=== PATIENT | male | born 1960 | race Caucasian/White ===

== ENCOUNTER 2019-12-27 09:34 | Inpatient (IN) | payer SELFPAY ==
[2019-12-27] MEDS ORDERED: HYDRALAZINE HCL 20 MG/ML VIAL ONE (10:03)
--- NOTE | 2019-12-27 10:16 | RAD REPORT ---
EXAM DESCRIPTION: RAD - Chest Single View - 12/27/2019 10:09 am CLINICAL HISTORY: DYSPNEA Chest pain. COMPARISON: No comparisons FINDINGS: Portable technique limits examination quality. The lungs are grossly clear. The heart is normal in size. No displaced fractures. IMPRESSION: No acute intrathoracic process suspected.
[2019-12-27 10:19] LABS: Absolute Lymphocytes (CBC) 1.4 K/uL (0.7-4.9); Basophils % 0.4 % (0-1.3); Hematocrit 39.8 % (39.6-49.0); Lymphocytes % 35.9 % (15.3-44.8); MPV 7.5 fL (7.6-11.3); RBC Red Blood Cell Count 4.26 M/uL (4.33-5.43)
[2019-12-27 10:25] LABS: Protime INR 1.13
[2019-12-27 10:46] LABS: Albumin 3.4 g/dL (3.4-5.0); Bilirubin Direct 0.1 mg/dL (0-0.2); Bilirubin Total 0.6 mg/dL (0.2-1.0); Magnesium 2.2 mg/dL (1.8-2.4); Potassium 4.5 mmol/L (3.5-5.1); Protein, Total 7.8 g/dL (6.4-8.2)
[2019-12-27] MEDS ORDERED: NA CHLORIDE 0.9% 1,000 ML ONE (11:13)
--- OUTSIDE RECORDS SUMMARY | 2019-12-27 11:13 | XMS REPORT | Summary of Care ---
:1960 Author Organization [facility] Address [address] [place] [id number] Care Team Providers Name Role Phone Svetlana Ariza Primary Care Provider Reason for Referral (Routine) Status Reason Specialty Diagnoses / Referred By Referred To Procedures Contact Contact New Request Vascular Surgery Diagnoses Peripheral vascular disease, unspecified Shea, Procedures DUPLEX SCAN GRAFT LOWER EXTREMITY-UNILATERAL BY VASCULAR LAB THALIA Gonzales [address] [place] [address] (Routine) Status Reason Specialty Diagnoses / Referred By Referred To Procedures Contact Contact New Request Vascular Surgery Diagnoses Peripheral vascular disease, unspecified Shea, Procedures OTIS MULTI LEVEL BY VASCULAR LAB THALIA Gonzales [address] [place] [address] Reason for Visit Reason Comments Follow-up Encounter Details Date Type Department Care Team Description 10/01/2019 Office Visit [facility] Vascular Glenn Shea PA [address] [place] [address] Critical ischemia of lower extremity (Pr imary Dx); Surgery- [facility], Vascular Surg Peripheral vascular disease, unspecified ; [facility] Essential hypertension; [address] Critical low er limb ischemia; [address] Infection of left foot; [place], [place] Pain and swell ing of left lower leg [id number] Allergies No Known Allergiesdocumented as of this encounter (statuses as of 10/01/2019) Medications Medication Sig Dispensed Refills Start Date End Date Status hydroCHLOROthiazide 25 mg Take 1 tablet 30 tablet 2 08/25/2019 Active tabletIndications: by mouth Peripheral arterial every disease morning. aspirin 81 mg chewable Take 1 tablet 30 tablet 2 08/25/2019 Active tabletIndications: by mouth Peripheral arterial daily. disease HYDROcodone-acetaminophen Take 1 tablet 28 tablet 0 08/25/2019 Active (NORCO) 10-325 mg by mouth tabletIndications: every 6 (six) Peripheral vascular hours as disease, unspecified needed for Pain (scale 7-10). simvastatin 20 mg Take 1 tablet 30 tablet 2 08/25/2019 Active tabletIndications: by mouth at Peripheral arterial bedtime. disease traMADol 50 mg Take 1 tablet 20 tablet 0 08/29/2019 Active tabletIndications: by mouth Peripheral vascular every 8 disease, unspecified (eight) hours as needed for Pain (scale 4-6) or Pain (scale 7-10). doxycycline hyclate 100 mg Take 1 tablet 28 tablet 0 0 10/01/2019 Active tabletIndications: by mouth 2 Critical ischemia of lower (two) times extremity daily for 14 days. GABAPENTIN, BULK, MISC 0 Active FUROSEMIDE, BULK, MISC 0 Active furosemide 20 mg Take 1 tablet 7 tablet 0 10/01/2019 10/08/19 20 Active tabletIndications: Pain by mouth and swelling of left lower daily for 7 leg days. documented as of this encounter (statuses as of 10/01/2019) Active Problems Problem Noted Date Infection of left foot 09/07/2019 Critical lower limb ischemia 08/23/2019 Peripheral vascular disease, unspecified 07/31/2019 Overview: Added automatically from request for tono juarez [id number] documented as of this encounter (statuses as of 10/01/2019) Immunizations Name Administration Dates Next Due Pneumococcal Polysaccharide, PPSV23 (PNEUMOVAX) 09/12/2019 documented as of this encounter Social History Tobacco Use Types Packs/Day Years Used Date Current Every Day Smoker Smokeless Tobacco: Never Used Comments: 1 ppd Sex Assigned at Date Recorded Not on file Job Start Date Occupation Industry Not on file Not on file Not on file Travel History Travel Start Travel End No recent travel history available. documented as of this encounter Last Filed Vital Signs Vital Sign Reading Time Taken Comments Blood Pressure 139/73 10/01/2019 9:33 AM CDT Pulse 65 10/01/2019 9:33 AM CDT Temperature 36.5 C (97.7 F) 10/01/2019 9:33 AM CDT Respiratory Rate 22 10/01/2019 9:33 AM CDT Oxygen Saturation - - Inhaled Oxygen Concentration - - Weight 63.5 kg (140 lb) 10/01/2019 9:33 AM CDT Height 177.8 cm (5' 10") 10/01/2019 9:33 AM CDT Body Mass Index 20.09 10/01/2019 9:33 AM CDT documented in this encounter Progress Notes Glenn Shea PA - 10/01/2019 9:30 AM CDT VASCULAR SURGERY CLINIC NOTE Date of Service: 10/01/2019 CC: s/p left common femoral endarterectomy 08/23/19 with distal atherosclerotic disease. OTIS's were poor during that Hospitalization and he has collateral follow to the his left foot. The left foot has dependent Rubor and cyanosis of the left great toe and 2 nd toe. His left plantar heel eschar has been without erythema or drainage. HISTORY OF PRESENT ILLNESS: Zachery Nath is a 59 year old male with PMH/PSH as described below. The patient presents to clinic today for evaluation of his left heel ulcer and left ischemic foot. He finished his Doxycycline and he denies fever or chills. He has redness of the left foot and purple toes and he denies rest pain. He has pain with weight bearing on the left heel or pressure from the mattress when he sleeps. He has been compliant with his medications and he is out of his Furosemide. There is no drainage or redness of the left heel area. The eschar of the plantar heel is 3.0 cm x 4.5 cm x o.0 cm depth. He applies Mupirocin to the eschar. He has his own Pain Management Physician who prescribes him his Pain Meds. PAST MEDICAL HISTORY: Past Medical History: Diagnosis Date HTN (hypertension) PVD (peripheral vascular disease) Smoker PAST SURGICAL HISTORY: Past Surgical History: Procedure Laterality Date ANGIOGRAM VIA LOWER EXTREMITY ACCESS (SHX) Left 08/10/2019 Surgeon: Mckay Bonilla Jr., MD; [facility] AORTOGRAM Left 08/10/2019 Surgeon: Mckay Bonilla Jr., MD; Location: [facility] OR Location FEMORAL ENDARTERECTOMY Left 08/23/2019 Surgeon: Marine Gonzalez MD; Location: [facility] OR Location SOCIAL HISTORY: Social History Socioeconomic History Marital status: Single Spouse name: Not on file Number of children: Not on file Years of education: Not on file Highest education level: Not on file Occupational History Not on file Social Needs Financial resource strain: Not on file Food insecurity: Worry: Not on file Inability: Not on file Transportation needs: Medical: Not on file Non-medical: Not on file Tobacco Use Smoking status: Current Every Day Smoker Smokeless tobacco: Never Used Tobacco comment: 1 ppd Substance and Sexual Activity Alcohol use: Not on file Drug use: Not on file Sexual activity: Not on file Lifestyle Physical activity: Days per week: Not on file Minutes per session: Not on file Stress: Not on file Relationships Social connections: Talks on phone: Not on file Gets together: Not on file Attends taoism service: Not on file Active member of club or organization: Not on file Attends meetings of clubs or organizations: Not on file Relationship status: Not on file Intimate partner violence: Fear of current or ex partner: Not on file Emotionally abused: Not on file Physically abused: Not on file Forced sexual activity: Not on file Other Topics Concern Not on file Social History Narrative Not on file FAMILY HISTORY: No family history on file. CURRENT MEDICATIONS: Current Outpatient Medications on File Prior to Visit Medication Sig Dispense Refill GABAPENTIN, BULK, MISC hydroCHLOROthiazide 25 mg tablet Take 1 tablet by mouth every morning. 30 tablet 2 simvastatin 20 mg tablet Take 1 tablet by mouth at bedtime. 30 tablet 2 FUROSEMIDE, BULK, MISC doxycycline hyclate 100 mg tablet Take 1 tablet by mouth 2 (two) times daily for 14 days. 28 tablet 0 traMADol 50 mg tablet Take 1 tablet by mouth every 8 (eight) hours as needed for Pain (scale 4-6) or Pain (scale 7-10). 20 tablet 0 aspirin 81 mg chewable tablet Take 1 tablet by mouth daily. 30 tablet 2 HYDROcodone-acetaminophen (NORCO) 10-325 mg tablet Take 1 tablet by mouth every 6 (six) hours asneeded for Pain (scale 7-10). 28 tablet 0 No current facility-administered medications on file prior to visit. ALLERGIES: No Known Allergies REVIEW OF SYSTEMS: Constitutional: no fevers/chills Cardiovascular: no chest pain Respiratory: no shortness of breath Gastrointestinal: no abdominal pain, nausea, vomiting, diarrhea Musculoskeletal: pain with any pressure of the left heel. Integumentary: no rashes, lesions, itching Neurological: no stroke/TIA symptoms PHYSICAL EXAM: BP 139/73 | Pulse 65 | Temp 36.5 C (97.7 F) (Oral) | Resp 22 | Ht 5' 10" (1.778 m) | Wt 140lb (63.5 kg) | BMI 20.09 kg/m Constitutional: awake, alert, no acute distress Respiratory: No use of accessory musculature Cardio: RRR Abdomen: soft, non-distended Extremities: left heel eschar 4.5 cm x 3.0 cm x 0.0 cm Edematous, hyperemic Left lower extremity Eschar firm and dry no matt-eschar cellulitis Skin: warm and dry Neurologic: no localizing symptoms Psych:oriented to place and time, demonstrated good judgement and reasoning during the examination. Pulses: Radial: right: 1+ and left: 1+ Dorsalis pedis: right: 0 and left: 0 Posterior tibial: right: 0 and left: 0 Left AT and DP proximal with monophasic signal. No signal of the left PT ar Peroneal Arteries. 09/08/19: Vascular Labs: Procedure/Quality Single-level arterial Doppler waveforms, multi-level segmental pressures, PVR's and TBI's with PPG waveforms of the bilateral lower extremities were obtained. Arterial Doppler waveforms in the bilateral lower extremities demonstrate triphasic Doppler waveforms on the right and monophasic Doppler waveforms on the left. The resting ankle-brachial indices fall into the NORMAL perfusion range on the right and the SEVERE arterial occlusive range on the left. The toe-brachial index is normal on the right and not obtainable on the left. The left thigh pressure could not be obtained due to patient movement. Notified Dr. Shukla of results @ 1300. Right Brachial = 166 mmHg. Thigh = 172 mmHg. Calf = 191 mmHg. LEAD MASSAGE THERAPIST = 181 mmHg. DPA = 154 mmHg. Digit = 119 mmHg. OTIS = 1.08. TBI = 0.71. Rt PVR Thigh PVR = Mild. Calf PVR = Mild. Ankle flow PVR = Moderate. RT PPG Digit 1 flow is present. Left Brachial = 168 mmHg. Calf = 69 mmHg. LEAD MASSAGE THERAPIST = 46 mmHg. DPA = 62 mmHg. Digit = 0 mmHg. OTIS = 0.37. LT PVR Thigh PVR = Mild. Calf PVR = Moderate. Ankle flow PVR = Severe. LT PPG Digit 1 flow is absent. Interpretation Summary The resting ankle-brachial indices fall into the NORMAL perfusion range on the right and the SEVERE arterial occlusive range on the left Reading Physician: Derek Naik MD, [place], RPVI 09/09/2019 03:14 PM Electronically Signed Assessment/Plan: Zachery Nath is a 59 year old male with 1. Critical ischemia of lower extremity He is s/p left common femoral endarterectomy Left lower extremity angiogram was reviewed and he run off single vessel RUBÉN. 2. Peripheral vascular disease, unspecified - OTIS MULTI LEVEL BY VASCULAR LAB; in 2 weeks October 15, 2019 - DUPLEX SCAN GRAFT LOWER EXTREMITY-UNILATERAL BY VASCULAR LAB; repeat in 2 weeks 15 October 2019 3. Essential hypertension 4. Critical lower limb ischemia Gabapentin ASA 81 mg po daily Simvastatin 20 mg po daily Refrain from tobacco. HCTZ as directed. 5. Previously Infected left foot heel Topical Mupirocin daily Lasix 20 mg po daily x 7 days for his edema [facility] if he has drainage fever or chills Follow up in 2 weeks to evaluation s/p Vascular Lab studies. The patient was educated on present condition and advised to contact us with questions/concerns. Patient states they understand and are in agreement with the treatment plan at this time. Patient was examined and discussed with THALIA Thomas 10/01/2019 10:21 AM documented in this encounter Plan of Treatment Date Type Specialty Care Team Description 10/15/2019 Appointment Vascular Sonography Jules Bonilla Jr., MD [address] [facility] [id number] [place] [address] [phone] 1, [facility] Vas Rm 10/15/2019 Office Visit Vascular Surgery Faculty, Vascular Surg 10/15/2019 Appointment Vascular Sonography Jules Bonilla Jr., MD [address] [facility] [id number] [place] [address] [phone] 1, [facility] Vas Rm Health Maintenance Due Date Last Done Comments HEPATITIS C (HCV) SCREEN 1960 DTaP,Tdap,and Td Vaccines (1 - Tdap) 02/27/1972 COLONOSCOPY 2011 Zoster Recombinant Vaccine (SHINGRIX) (1 of 2) 2011 LUNG CANCER SCREEN: Recommended for age 55-80 with 30 02/27/2016 + pack year history INFLUENZA VACCINE (#1) 2019 PNEUMOCOCCAL 0-64 YEARS COMBINED SERIES Completed 09/12/19 20 documented as of this encounter Implants Implanted Type Area Human Resources Benefits Manager Device Shelf Model / Identifier Expiration Date Ser ial / Lot Angio-Seal Evolution Vascular Closure Device [employer] #[id number] - Sna Right: Terumo 02/01/2020 [id number] / Implanted: Qty: 1 on 08/10/2019 by Mckay Bonilla Jr., MD at [facility] / [id number] documented as of this encounter Results Not on filedocumented in this encounter Visit Diagnoses Diagnosis Critical ischemia of lower extremity - P rimary Peripheral vascular disease, unspecified Essential hypertension Unspecified essential hypertension Critical lower limb ischemia Unspecified circulatory system disorder Infection of left foot Unspecified local infection of skin and subcutaneous tissue Pain and swelling of left lower leg documented in this encounter Insurance Payer Benefit Plan Subscriber ID Effective Dates Phone Address Type / Group INDIGENT CARE ICF [id number] 2019- [facility] [address] [place] [address] documented as of this encounter
--- OUTSIDE RECORDS SUMMARY | 2019-12-27 11:14 | XMS REPORT | Summary of Care ---
:1960 Author Organization [facility] Address [address] [place] [address] Care Team Providers Name Role Phone Svetlana Ariza Primary Care Provider Reason for Visit Reason Comments Follow-up wound of left foot Encounter Details Date Type Department Care Team Description 10/15/2019 Office Visit [facility] Vascular Paolo Bonilla Jr., MD [address] [facility] [id number] [place] [address] Critical ischemia of lower extremity (Pr imary Dx); Surgery- [place] Faculty, Vascular Surg Peripheral vascular disease, unspecified ; [facility] Clinics Continuous tobacco abuse; [address]fection of [address] [place] [address] Allergies No Known Allergiesdocumented as of this encounter (statuses as of 10/15/2019) Medications Medication Sig Dispensed Refills Start Date End Date Status hydroCHLOROthiazide 25 mg Take 1 tablet 30 tablet 2 08/25/2019 Active tabletIndications: by mouth Peripheral arterial disease every morning. aspirin 81 mg chewable Take 1 tablet 30 tablet 2 08/25/2019 Active tabletIndications: by mouth Peripheral arterial disease daily. HYDROcodone-acetaminophen Take 1 tablet 28 tablet 0 08/25/2019 Active (NORCO) 10-325 mg by mouth tabletIndications: every 6 (six) Peripheral vascular hours as disease, unspecified needed for Pain (scale 7-10). simvastatin 20 mg Take 1 tablet 30 tablet 2 08/25/2019 Active tabletIndications: by mouth at Peripheral arterial disease bedtime. traMADol 50 mg Take 1 tablet 20 tablet 0 08/29/2019 Active tabletIndications: by mouth Peripheral vascular every 8 disease, unspecified (eight) hours as needed for Pain (scale 4-6) or Pain (scale 7-10). GABAPENTIN, BULK, MISC 0 Active FUROSEMIDE, BULK, MISC 0 Active documented as of this encounter (statuses as of 10/15/2019) Active Problems Problem Noted Date Infection of left foot 09/07/2019 Critical lower limb ischemia 08/23/2019 Peripheral vascular disease, unspecified 07/31/2019 Overview: Added automatically from request for tono juarez [id number] documented as of this encounter (statuses as of 10/15/2019) Immunizations Name Administration Dates Next Due Pneumococcal Polysaccharide, PPSV23 (PNEUMOVAX) 09/12/2019 documented as of this encounter Social History Tobacco Use Types Packs/Day Years Used Date Current Every Day Smoker Smokeless Tobacco: Never Used Tobacco Cessation: Ready to Quit: No; Co unseling Given: Yes Comments: 1 ppd Sex Assigned at Date Recorded Not on file Job Start Date Occupation Industry Not on file Not on file Not on file Travel History Travel Start Travel End No recent travel history available. documented as of this encounter Last Filed Vital Signs Vital Sign Reading Time Taken Comments Blood Pressure 126/76 10/15/2019 10:31 AM CDT Pulse 68 10/15/2019 10:31 AM CDT Temperature 36.4 C (97.5 F) 10/15/2019 10:31 AM CDT Respiratory Rate 16 10/15/2019 10:31 AM CDT Oxygen Saturation - - Inhaled Oxygen Concentration - - Weight 63.5 kg (140 lb) 10/15/2019 10:31 AM CDT Height 177.8 cm (5' 10") 10/15/2019 10:31 AM CDT Body Mass Index 20.09 10/15/2019 10:31 AM CDT documented in this encounter Progress Notes Glenn Shea PA - 10/15/2019 10:00 AM CDT VASCULAR SURGERY CLINIC NOTE Date of Service: 10/15/2019 CC: left heel ulcer that is slow to heel s/p left femoral endarterectomy 08/23/19. Left heel wound ispainful and both lower legs are edematous. HISTORY OF PRESENT ILLNESS: Zachery Nath is a 59 year old male with PMH/PSH as described below. The patient presents to clinic today for evaluation of the left heel ulcer now eschar. Patient has escharof the left plantar heel which measures 4.5 cm x 3.0 cm x o.o cm depth. He has bilateral lower extremity below the knee edema of the lower leg ankels and feet. He is non weight bearing LLE on crutches.He is on HCTZ and he is followed by Pain Management. He cannot sleep because of his pain. PAST MEDICAL HISTORY: Past Medical History: Diagnosis Date HTN (hypertension) PVD (peripheral vascular disease) Smoker PAST SURGICAL HISTORY: Past Surgical History: Procedure Laterality Date ANGIOGRAM VIA LOWER EXTREMITY ACCESS (SHX) Left 08/10/2019 Surgeon: Mckay Bonilla Jr., MD; Location: [facility] AORTOGRAM Left 08/10/2019 Surgeon: Mckay Bonilla Jr., MD; Location: [facility] FEMORAL ENDARTERECTOMY Left 08/23/2019 Surgeon: Marine Gonzalez MD; Location: [facility] SOCIAL HISTORY: Social History Socioeconomic [...] file Gets together: Not on file Attends confucianist service: Not on file Active member of [...] Prior to Visit Medication Sig Dispense Refill FUROSEMIDE, BULK, MISC GABAPENTIN, BULK, MISC traMADol 50 mg tablet Take 1 tablet by mouth every 8 (eight) hours as needed for Pain (scale 4-6) or Pain (scale 7-10). 20 tablet 0 aspirin 81 mg chewable tablet Take 1 tablet by mouth daily. 30 tablet 2 hydroCHLOROthiazide 25 mg tablet Take 1 tablet by mouth every morning. 30 tablet 2 HYDROcodone-acetaminophen (NORCO) 10-325 mg tablet Take 1 tablet by mouth every 6 (six) hours asneeded for Pain (scale 7-10). 28 tablet 0 simvastatin 20 mg tablet Take 1 tablet by mouth at bedtime. 30 tablet 2 No current facility-administered medications on file prior to visit. ALLERGIES: No Known Allergies REVIEW OF SYSTEMS: Constitutional: no fevers/chills Cardiovascular: no chest pain Respiratory: no shortness of breath Gastrointestinal: no abdominal pain, nausea, vomiting, diarrhea Musculoskeletal: swelling of the bilateral feet. Integumentary: no rashes, lesions, itching Neurological: no stroke/TIA symptoms PHYSICAL EXAM: BP 126/76 (BP Location: Left arm, Patient Position: Sitting, BP CUFF SIZE: Adult Large) | Pulse 68| Temp 36.4 C (97.5 F) (Oral) | Resp 16 | Ht 5' 10" (1.778 m) | Wt 140 lb (63.5 kg) | BMI 20.09 kg/m Constitutional: awake, alert, no acute distress Respiratory: No use of accessory musculature Cardio: RRR Abdomen: soft, non-distended Extremities: left heel eschar is the same with area of scaly skin at the periphery. He has edema of both lower extremities eschar is 4.5 cm x 3.0 cm x 0.0 cm depth. Skin: warm and dry Neurologic: no localizing symptoms Psych:oriented to place and time, demonstrated good judgement and reasoning during the examination. Pulses: Radial: right: 1+ and left: 1+ Dorsalis pedis: right: 0 and left: 0 Posterior tibial: right: 0 and left: 0 Left foot with monophasic signals left peroneal and PT Artery. Stronger monophasic signal of the left DP Artery. Vascular Labs: 10/15/19: Measurements and Calculations Right No Laterality Left Unit Ext Iliac A PSV 73.7 cm/sec CLIN TECH PSV 50.6 cm/sec Prox PFA PSV -54.0 cm/sec Prox RUBÉN PSV 48.3 cm/sec Mid RUBÉN PSV -11.1 cm/sec Dist RUBÉN PSV 13.2 cm/sec Prox DAIRY FARM OPERATOR PSV 22.4 cm/sec Mid DAIRY FARM OPERATOR PSV 25.2 cm/sec Dist DAIRY FARM OPERATOR PSV 6.8 cm/sec Prox Wesely A PSV -30.1 cm/sec Mid Wesley A PSV 10.6 cm/sec Ponce Pedis PSV -12.1 cm/sec Procedure Arterial duplex of the LEFT lower extremity was performed. Lt Lower extremity Measurements and Calculations Right No Laterality Left Unit Ext Iliac A PSV 73.7 cm/sec CLIN TECH PSV 50.6 cm/sec Prox PFA PSV -54.0 cm/sec Prox RUBÉN PSV 48.3 cm/sec Mid RUBÉN PSV -11.1 cm/sec Dist RUBÉN PSV 13.2 cm/sec Prox DAIRY FARM OPERATOR PSV 22.4 cm/sec Mid DAIRY FARM OPERATOR PSV 25.2 cm/sec Dist DAIRY FARM OPERATOR PSV 6.8 cm/sec Prox Wesley A PSV -30.1 cm/sec Mid Wesley A PSV 10.6 cm/sec Ponce Pedis PSV -12.1 cm/sec Procedure Arterial duplex of the LEFT lower extremity was performed. Lt Lower extremity The distal external iliac, common femoral and profunda arteries were patent with no evidence of hemodynamically significant velocities seen. There were no obtainable values in the superficial femoral and popliteal arteries suggestive of occlusion. The distal posterior tibial, peroneal, anterior tibial and dorsalis pedis arteries were patent and demonstrated decreased velocities. Assessment/Plan: Zachery Nath is a 59 year old male with 1. Critical ischemia of lower extremity The distal external iliac, common femoral and profunda arteries were patent with no evidence of hemodynamically significant velocities seen. There were no obtainable values in the superficial femoral and popliteal arteries suggestive of occlusion. The distal posterior tibial, peroneal, anterior tibial and dorsalis pedis arteries were patent and demonstrated decreased velocities. 2. Peripheral vascular disease, unspecified Simvastatin 20 mg po daily HCTZ 25 mg po daily ASA 81 mg po daily 3. Continuous tobacco abuse. 4. Infection of left foot Patient with an eschar now. Follow up 11/05/2019 for re-evaluation Patient with a left SFA to popliteal artery occlusion. The patient was educated on present condition and advised to contact us with questions/concerns. Patient states they understand and are in agreement with the treatment plan at this time. Patient will be discussed with THALIA Thomas 10/15/2019 12:06 PM Farideh Bautista RN - 10/15/2019 10:00 AM Beth Nath is a 59 year old male comes to clinic with assistive device; wheelchair for follow up left foot. Pt comes accompanied by son . Pt in NAD w/ pain reported 04/12. Pt preferred language is Salvadorean. Pt. denies fall in last 12 months. Allergies and medications reviewed and updated. documented in this encounter Plan of Treatment Date Type Specialty Care Team Description 11/05/2019 Office Visit Vascular Surgery Faculty, Vascular Surg Health Maintenance Due Date Last Done Comments [...] of this encounter Implants Implanted Type Area Blow Machine Tender Starch Spraying Device Shelf Model / Identifier Expiration Date Ser ial / Lot Angio-Seal Evolution Vascular Closure Device [employer] #[id number] - Sna Right: Terumo 02/01/2020 [id number] / Implanted: Qty: 1 on 08/10/2019 by Mckay Bonilla Jr., MD at [facility] / [id number] documented as of this encounter Results Not on filedocumented in this encounter Visit Diagnoses Diagnosis Critical ischemia of lower extremity - P rimary Peripheral vascular disease, unspecified Continuous tobacco abuse Infection of left foot Unspecified local infection of skin and subcutaneous tissue documented in this encounter Insurance Payer Benefit Plan Subscriber ID Effective Dates Phone Address Type / Group INDIGENT CARE [facility] [id number] 2019- [facility] [address] [place] [address] documented as of this encounter
--- OUTSIDE RECORDS SUMMARY | 2019-12-27 11:14 | XMS REPORT | Summary of Care ---
:1960 Author Organization [facility] Address [address] [place] [address] Care Team Providers Name Role Phone Svetlana Ariza Primary Care Provider Reason for Referral (Routine) Status Reason Specialty Diagnoses / Referred By Referred To Procedures Contact Contact New Request Vascular Surgery Diagnoses Peripheral vascular disease, unspecified Shea, Procedures DUPLEX SCAN GRAFT LOWER EXTREMITY-UNILATERAL BY VASCULAR LAB THALIA Gonzales [address] [place] [address] (Routine) Status Reason Specialty Diagnoses / Referred By Referred To Procedures Contact Contact New Request Vascular Surgery Diagnoses Peripheral vascular disease, unspecified Shea, Procedures OTIS MULTI LEVEL BY VASCULAR LAB THALIA Gonzales [address] [place] [address] Reason for Visit Reason Comments Follow-up Encounter Details Date Type Department Care Team Description 10/01/[address] [facility] Vascular Glenn Shea PA [address] [place] [address] Critical ischemia of lower extremity (Pr imary Dx); Surgery- [place] Faculty, Vascular Surg Peripheral vascular disease, unspecified ; [facility] Clinics Essential hypertension; [address] Critical low er limb ischemia; Drive, [address] Floor Infection of left foot; [place], [place] Pain and swell ing of left lower leg [address] Allergies No Known Allergiesdocumented as of this encounter (statuses as of 10/03/2019) Medications Medication Sig Dispensed Refills Start Date End Date Status hydroCHLOROthiazide 25 mg Take 1 30 tablet 2 08/25/2019 Active tabletIndications: tablet by Peripheral arterial mouth every disease morning. aspirin 81 mg chewable Take 1 30 tablet 2 08/25/2019 Active tabletIndications: tablet by Peripheral arterial mouth daily. disease HYDROcodone-acetaminophen Take 1 28 tablet 0 08/25/2019 Active (NORCO) 10-325 mg tablet by tabletIndications: mouth every Peripheral vascular 6 (six) disease, unspecified hours as needed for Pain (scale 7-10). simvastatin 20 mg Take 1 30 tablet 2 08/25/2019 A ctive tabletIndications: tablet by Peripheral arterial mouth at disease bedtime. traMADol 50 mg Take 1 20 tablet 0 08/29/2019 Acti ve tabletIndications: tablet by Peripheral vascular mouth every disease, unspecified 8 (eight) hours as needed for Pain (scale 4-6) or Pain (scale 7-10). GABAPENTIN, BULK, MISC 0 Active FUROSEMIDE, BULK, MISC 0 Active furosemide 20 mg Take 1 7 tablet 0 10/01/2019 10/08/2019 A ctive tabletIndications: Pain tablet by and swelling of left lower mouth daily leg for 7 days. doxycycline hyclate 100 mg Take 1 28 tablet 0 09/17/2019 tabletIndications: tablet by Critical ischemia of lower mouth 2 extremity (two) times daily for 14 days. documented as of this encounter (statuses as of 10/03/2019) Active Problems Problem Noted Date Infection of left foot 09/07/2019 Critical lower limb ischemia 08/23/2019 Peripheral vascular disease, unspecified 07/31/2019 Overview: Added automatically from request for tono ann [id number] documented as of this encounter (statuses as of 10/03/2019) Immunizations Name Administration Dates Next Due Pneumococcal [...] file Gets together: Not on file Attends mandaen service: Not on file Active member of [...] = 172 mmHg. Calf = 191 mmHg. FURNACE TAPPER = 181 mmHg. DPA = 154 mmHg. Digit = 119 mmHg. OTIS = 1.08. TBI = 0.71. Rt PVR Thigh PVR = Mild. Calf PVR = Mild. Ankle flow PVR = Moderate. RT PPG Digit 1 flow is present. Left Brachial = 168 mmHg. Calf = 69 mmHg. FURNACE TAPPER = 46 mmHg. DPA = 62 mmHg. [...] MI, RPVI 09/09/2019 03:14 PM Electronically Signed Vein Mapping: Procedure Vein mapping of the bialteral lower extremities was performed. The great saphenous vein was patent bilaterally. RT Superficial GSV at the proximal thigh measures 0.35 cm. GSV at the mid thigh measures 0.15 cm. GSV at the distal thigh measures 0.15 cm. GSV at the proximal calf measures 0.24 cm. GSV at the mid calf measures 0.16 cm. GSV at the distal calf measures 0.20 cm. LT Superficial GSV at the proximal thigh measures 0.27 cm. GSV at the mid thigh measures 0.23 cm. GSV at the distal thigh measures 0.28 cm. GSV at the proximal calf measures 0.24 cm. GSV at the mid calf measures 0.33 cm. GSV at the distal calf measures 0.18 cm. Interpretation Summary Patent great saphenous veins bilaterally. VEINS are small. Assessment/Plan: Zachery Nath is a 59 year [...] 7 days for his edema Return to [facility] if he has drainage fever or chills Follow up in 2 weeks to evaluation s/p Vascular Lab studies. Patient may be a candidate for a femoral to distal left lower extremity bypass graft using greater saphenous vein if possible. PTFE would not last for any length of time. The patient was educated on present condition and advised to contact us with questions/concerns. Patient states they understand and are in agreement with the treatment plan at this time. Patient was examined and discussed with THALIA Thomas 10/01/2019 10:21 AM documented in this encounter Plan of Treatment Date Type Specialty Care Team Description 10/15/2019 Appointment Vascular Sonography Jules Bonilla Jr., MD [address] [facility] [id number] [place] [id number] 1, [facility] 10/15/2019 Office Visit Vascular Surgery Faculty, Vascular Surg 10/15/2019 Appointment Vascular Sonography Jules Bonilla Jr., MD [address] [facility] [id number] [place] [address] [phone] 1, [facility] Health Maintenance Due Date Last Done Comments [...] of this encounter Implants Implanted Type Area Track Patrol Device Shelf Model / Identifier Expiration Date Ser ial / Lot Angio-Seal Evolution Vascular Closure Device [employer] #[id number] - Sna Right: Terumo 02/01/2020 [id number] / Implanted: Qty: 1 on 08/10/2019 by Mckay Bonilla Jr., MD at [facility] / [id number] documented as of this encounter Results Not [...] in this encounter Insurance Payer Benefit Plan / Subscriber ID Effective Dates Phone Addre ss Type Group P[facility]LO [facility] [id number] 2019- [address] [facility] [address] [place] [address] documented as of this encounter
--- OUTSIDE RECORDS SUMMARY | 2019-12-27 11:14 | XMS REPORT | Summary of Care ---
:1960 Author Organization [facility] Address [address] [place] [address] Care Team Providers Name Role Phone Svetlana Ariza Primary Care Provider Reason for Visit Reason Comments Follow-up wound of left foot Encounter Details Date Type Department Care Team Description 10/15/2019 Office Visit [facility] Vascular Paolo Bonilla Jr., MD [address] [facility] [id number] [place] [address] Critical ischemia of lower extremity (Pr imary Dx); Surgery- [place] Faculty, Vascular Surg Peripheral vascular disease, unspecified ; [facility] Clinics Continuous tobacco abuse; [address]fection of left foot [address] [place] [address] Allergies No Known Allergiesdocumented as [...] Added automatically from request for tono juarez [id number] documented as of this encounter (statuses as [...] file Gets together: Not on file Attends jewish service: Not on file Active member of [...] Unit Ext Iliac A PSV 73.7 cm/sec DIETETIC INTERN PSV 50.6 cm/sec Prox PFA PSV -54.0 cm/sec Prox RUBÉN PSV 48.3 cm/sec Mid RUBÉN PSV -11.1 cm/sec Dist RUBÉN PSV 13.2 cm/sec Prox TRADITIONAL CHINESE HERBALIST PSV 22.4 cm/sec Mid TRADITIONAL CHINESE HERBALIST PSV 25.2 cm/sec Dist TRADITIONAL CHINESE HERBALIST PSV 6.8 cm/sec Prox Wesley A PSV -30.1 cm/sec Mid Wesley A PSV 10.6 cm/sec Ponce Pedis PSV -12.1 cm/sec Procedure Arterial duplex of the LEFT lower extremity was performed. Lt Lower extremity Measurements and Calculations Right No Laterality Left Unit Ext Iliac A PSV 73.7 cm/sec DIETETIC INTERN PSV 50.6 cm/sec Prox PFA PSV -54.0 cm/sec Prox RUBÉN PSV 48.3 cm/sec Mid RUBÉN PSV -11.1 cm/sec Dist RUBÉN PSV 13.2 cm/sec Prox TRADITIONAL CHINESE HERBALIST PSV 22.4 cm/sec Mid TRADITIONAL CHINESE HERBALIST PSV 25.2 cm/sec Dist TRADITIONAL CHINESE HERBALIST PSV 6.8 cm/sec Prox Wesley A PSV [...] pain reported 04/12. Pt preferred language is Ugandan. Pt. denies fall in last 12 months. [...] of this encounter Implants Implanted Type Area Agent Producer Device Shelf Model / Identifier Expiration Date Ser ial / Lot Angio-Seal Evolution Vascular Closure Device [employer] #[id number] - Sna Right: Terumo 02/01/2020 [id number] / Implanted: Qty: 1 on 08/10/2019 by Mckay Bonilla Jr., MD at [facility] / [id number] documented as of this encounter Results Not on filedocumented in this encounter Visit Diagnoses Diagnosis Critical ischemia of lower extremity - P rimary Peripheral vascular disease, unspecified Continuous tobacco abuse Infection of left foot Unspecified local infection of skin and subcutaneous tissue documented in this encounter Insurance Payer Benefit Plan Subscriber ID Effective Dates Phone Address Type / Group [facility] [id number] 2019- [facility] [address] [place] [address] documented as of this encounter
--- OUTSIDE RECORDS SUMMARY | 2019-12-27 11:14 | XMS REPORT | Summary of Care ---
:1960 Author Organization [facility] Address [address] [place] [address] Care Team Providers Name Role Phone Svetlana Ariza Primary Care Provider Reason for Referral (Routine) Status Reason Specialty Diagnoses / Referred By Referred To Procedures Contact Contact New Request Vascular Surgery Diagnoses Peripheral vascular disease, unspecified Shea, Procedures DUPLEX SCAN GRAFT LOWER EXTREMITY-UNILATERAL BY VASCULAR LAB THALIA Gonzales [address] [place] [address] (Routine) Status Reason Specialty Diagnoses / Referred By Referred To Procedures Contact Contact New Request Vascular Surgery Diagnoses Peripheral vascular disease, unspecified Shea, Procedures OTIS MULTI LEVEL BY VASCULAR LAB THALIA Gonzales [address] [place] [address] Reason for Visit Reason Comments Follow-up Encounter Details Date Type Department Care Team Description 10/01/2019 Office Visit [facility] Vascular Glenn Shea PA [address] [place] [address] Critical ischemia of lower extremity (Pr imary Dx); Surgery- [place] Faculty, Vascular Surg Peripheral vascular disease, unspecified ; [facility] Clinics Essential hypertension; [address] Critical low er limb ischemia; Drive, [address] Floor Infection of left foot; [place], [place] Pain and swell ing of left [...] Added automatically from request for tono juarez [id number] documented as of this encounter (statuses as [...] 08/10/2019 Surgeon: Mckay Bonilla Jr., MD; Location: [facility] OR Location FEMORAL ENDARTERECTOMY Left 08/23/2019 Surgeon: Marine Gonzalez MD; Location: [facility] OR Location SOCIAL HISTORY: Social History Socioeconomic [...] file Gets together: Not on file Attends lutheran service: Not on file Active member of [...] = 172 mmHg. Calf = 191 mmHg. OVERWEAVER = 181 mmHg. DPA = 154 mmHg. Digit = 119 mmHg. OTIS = 1.08. TBI = 0.71. Rt PVR Thigh PVR = Mild. Calf PVR = Mild. Ankle flow PVR = Moderate. RT PPG Digit 1 flow is present. Left Brachial = 168 mmHg. Calf = 69 mmHg. OVERWEAVER = 46 mmHg. DPA = 62 mmHg. [...] 7 days for his edema Return to [facility] if he has drainage fever or chills [...] Vascular Sonography Jules Bonilla Jr., MD 301 [facility] [id number] [place] [address] [phone] 1, [facility] Vas Rm 10/15/2019 Office Visit Vascular Surgery Faculty, Vascular Surg 10/15/2019 Appointment Vascular Sonography Jules Bonilla Jr., MD 301 [facility] [id number] [place] [address] [phone] 1, [facility] Vas Rm Health Maintenance Due Date Last [...] of this encounter Implants Implanted Type Area Intermediate Frame Tender Device Shelf Model / Identifier Expiration Date Ser ial / Lot Angio-Seal Evolution Vascular Closure Device [employer] #[id number] - Sna Right: Terumo 02/01/2020 [id number] / Implanted: Qty: 1 on 08/10/2019 by Mckay Bonilla Jr., MD at [facility] / [id number] documented as of this encounter Results Not [...] Address Type / Group INDIGENT CARE [facility] [id number] 2019- [facility] [address] [place] [address] documented as of this encounter
--- OUTSIDE RECORDS SUMMARY | 2019-12-27 11:15 | XMS REPORT | Summary of Care ---
:1960 Author Organization [facility] Address [address] [place] [address] Care Team Providers Name Role Phone Svetlana Ariza Primary Care Provider Reason for Visit Reason Comments Follow-up PVD Encounter Details Date Type Department Care Team Description 11/05/2019 Office Visit [facility] V[facility] Eligio Kelsey MD [address] [place] [address] Critical ischemia of lower extremity (Pr imary Dx); Surgery- [place] [facility], Vascular Surg Peripheral vascular disease, unspecified ; [facility] Continuous tobacco abuse; [address] pertension; [address], [address] Heel ulcer, left, [place] [address] Allergies No Known Allergiesdocumented as of this encounter (statuses as of 11/05/2019) Medications Medication Sig Dispensed Refills Start Date [...] 0 Active FUROSEMIDE, BULK, MISC 0 Active minocycline 100 mg Take 1 20 capsule 0 11/05/2019 0 Active capsuleIndications: capsule by Critical ischemia of mouth every lower extremity, Heel 12 (twelve) ulcer, left, with fat hours for 10 layer exposed days. ibuprofen 800 mg Take 1 tablet 60 tablet 2 11/05/2019 01/04/20 20 Active tabletIndications: by mouth 2 Critical ischemia of (two) times lower extremity, Heel daily as ulcer, left, with fat needed for layer exposed Pain (scale 4-6) for up to 60 days. documented as of this encounter (statuses as of 11/05/2019) Active Problems Problem Noted Date Infection of left foot 09/07/2019 Critical lower limb ischemia 08/23/2019 Peripheral vascular disease, unspecified 07/31/2019 Overview: Added automatically from request for tono juarez [id number] documented as of this encounter (statuses as of 11/05/2019) Immunizations Name Administration Dates Next Due Pneumococcal Polysaccharide, PPSV23 (PNEUMOVAX) 09/12/2019 documented as of this encounter Social History Tobacco Use Types Packs/Day Years Used Date Current Every Day Smoker Smokeless Tobacco: Never Used Tobacco Cessation: Ready to Quit: No; Co unseling Given: No Comments: 1 ppd Sex Assigned at Date Recorded Not on file Job Start Date Occupation Industry Not on file Not on file Not on file Travel History Travel Start Travel End No recent travel history available. COVID-19 Exposure Response Date Recorded In the last month, have you been in contact with No / Unsure 11/05/2019 9:43 AM CDT someone who was confirmed or suspected to have Coronavirus / COVID-19? documented as of this encounter Last Filed Vital Signs Vital Sign Reading Time Taken Comments Blood Pressure 131/69 11/05/2019 9:47 AM CDT Pulse 72 11/05/2019 9:47 AM CDT Temperature 37.2 C (98.9 F) 11/05/2019 9:44 AM CDT Respiratory Rate 14 11/05/2019 9:44 AM CDT Oxygen Saturation - - Inhaled Oxygen Concentration - - Weight 61.8 kg (136 lb 4.8 oz) 11/05/2019 9:44 AM CDT Height 177.8 cm (5' 10") 11/05/2019 9:44 AM CDT Body Mass Index 19.56 11/05/2019 9:44 AM CDT documented in this encounter Progress Notes Glenn Shea PA - 11/05/2019 9:30 AM CDT VASCULAR SURGERY CLINIC NOTE Date of Service: 11/05/2019 CC: left heel ulcer s/p common femoral endarterectomy. Left SFA was ligated (was occluded) The SFA was used as a patch graft for the femoral endarterectomy his Profunda with collaterals are perfusing his left foot. He has less redness and pain and his left heel ulcer is not getting worse. HISTORY OF PRESENT ILLNESS: Zachery Nath is a 59 year old male with PMH/PSH as described below. The patient presents to clinic today for evaluation left lower extremity and foot. Left heel ulcer with a5.0 cm x 3.8 cm with eschar. Ibuprofen works well for his left lower extremity pain. He is uninsured so he can't pay for Chantix and he is not taking Baby Aspirin at this time. He scraped the dorsal aspect of his left 2 nd toe last week and has a wound. There is some mild redness. PAST MEDICAL HISTORY: Past Medical History: Diagnosis Date HTN (hypertension) PVD (peripheral vascular disease) Smoker PAST SURGICAL HISTORY: Past Surgical History: Procedure Laterality Date ANGIOGRAM VIA LOWER EXTREMITY ACCESS (SHX) Left 08/10/2019 Surgeon: Mckay Bonilla Jr., MD; [facility] AORTOGRAM Left 08/10/2019 Surgeon: Mckay Bonilla Jr., MD; [facility] FEMORAL ENDARTERECTOMY Left 08/23/2019 Surgeon: Marine Gonzalez MD; [facility] SOCIAL HISTORY: Social History Socioeconomic History Marital [...] file Gets together: Not on file Attends gnosticist service: Not on file Active member of [...] no abdominal pain, nausea, vomiting, diarrhea Musculoskeletal: he has claudication constantly with weight bearing with one crutch left lower extremity. He has a left heel wound 5.0 cm x 3.8 cm with eschar. Integumentary: no rashes, lesions, itching Neurological: no stroke/TIA symptoms PHYSICAL EXAM: BP 131/69 (BP CUFF SIZE: Adult Small) | Pulse 72 | Temp 37.2 C (98.9 F) (Oral) | Resp 14 | Ht 5' 10" (1.778 m) | Wt 136 lb 4.8 oz (61.8 kg) | BMI 19.56 kg/m Constitutional: awake, alert, no acute distress Respiratory: No use of accessory musculature Cardio: RRR Abdomen: soft, non-distended Extremities: left heel wound eschar He has serous drainage lateral eschar area that has no odor. The ulcer is full thickness and he has an abrasion of the left dorsal 2 nd toe (blunt injury one week ago). Skin: warm and dry Neurologic: no localizing symptoms Psych:oriented to place and time, demonstrated good judgement and reasoning during the examination. Pulses: Radial: right: 1+ and left: 1+ Dorsalis pedis: right: 1+ and left: 0 Posterior tibial: right: 0 and left: 0 left PT, DP and peroneal with monophasic signals . Vascular Labs: No new Vascular lab studies. Assessment/Plan: Zachery Nath is a 59 year old male with 1. Critical ischemia of lower extremity Ibuprofen 800 mg po bid [prn with food. Minocycline 100 mg po bid x 10 says for the 2nd toe abrasion ans the draining heel wound. Wear sun screen , hat and long sleeve shirt while on Minocycline. 2. Peripheral vascular disease, unspecified 81 Aspirin daily. 3. Continuous tobacco abuse He smokes 3-4 cigarettes per day. 4. Essential hypertension 5. Heel ulcer, left, with fat layer exposed Dakin's daily wet to dry left heel eschar area. He cannot afford Santyl. If the eschar is falling off he can call us and we will help with debridement. Patient is back to work driving trucks and he will follow with us in 4 weeks The patient was educated on present condition and advised to contact us with questions/concerns. Patient states they understand and are in agreement with the treatment plan at this time. Patient was examined and discussed with THALIA Thomas 11/05/2019 10:18 AM documented in this encounter Plan of Treatment Date Type Specialty Care Team Description 12/03/2019 Office Visit [facility] Surgery Faculty, Vascular Surg Health Maintenance Due Date Last Done Comments HEPATITIS C (HCV) SCREEN 1960 DTaP,Tdap,and Td Vaccines (1 - Tdap) 02/27/1972 COLONOSCOPY 2011 Zoster Recombinant Vaccine (SHINGRIX) (1 of 2) 2011 LUNG CANCER SCREEN: Recommended for age 55-80 with 30 02/27/2016 + pack year history INFLUENZA VACCINE (Season Ended) 2020 PNEUMOCOCCAL 0-64 YEARS COMBINED SERIES Completed 09/12/19 20 documented as of this encounter Implants Implanted Type Area Ground Support Equipment Fitter Device Shelf Model / Identifier Expiration Date Ser ial / Lot Angio-Seal Evolution Vascular Closure Device [employer] #[id number] - Sna Right: Terumo 02/01/2020 [id number] / Implanted: Qty: 1 on 08/10/2019 by Mckay Bonilla Jr., MD at [facility] NA / [id number] documented as of this encounter Results Not on filedocumented in this encounter Visit Diagnoses Diagnosis Critical ischemia of lower extremity - P rimary Peripheral vascular disease, unspecified Continuous tobacco abuse Essential hypertension Unspecified essential hypertension Heel ulcer, left, with fat layer exposed documented in this encounter
--- OUTSIDE RECORDS SUMMARY | 2019-12-27 11:15 | XMS REPORT | Summary of Care ---
:1960 Author Organization [facility] Address [address] [place] [address] Care Team Providers Name Role Phone Svetlana Ariza Primary Care Provider Reason for Visit Reason Comments Follow-up PVD Encounter Details Date Type Department Care Team Description 11/05/2019 Office Visit [facility] Vascular Eligio Kelsey MD [address] [place] [address] Critical ischemia of lower extremity (Pr imary Dx); Surgery- [place] Faculty, Vascular Surg Peripheral vascular disease, unspecified ; [facility] Continuous tobacco abuse; [address]ension; [address] Heel ulcer, left, [place] [address] Allergies No Known Allergiesdocumented as [...] Added automatically from request for tono juarez [id number] documented as of this encounter (statuses as [...] file Gets together: Not on file Attends mu-ism service: Not on file Active member of [...] of this encounter Implants Implanted Type Area Cotton Classer Device Shelf Model / Identifier Expiration Date Ser ial / Lot Angio-Seal Evolution Vascular Closure Device [employer] #[id number] - Sna Right: Terumo 02/01/2020 [id number] / Implanted: Qty: 1 on 08/10/2019 by Mckay Bonilla Jr., MD at [facility] NA / [id number] documented as of this encounter Results Not on filedocumented in this encounter Visit Diagnoses Diagnosis Critical ischemia of lower extremity - P rimary Peripheral vascular disease, unspecified Continuous tobacco abuse Essential hypertension Unspecified essential hypertension Heel ulcer, left, with fat layer exposed documented in this encounter
--- OUTSIDE RECORDS SUMMARY | 2019-12-27 11:16 | XMS REPORT | Summary of Care ---
:1960 Author Organization [facility] Address [address] [place] [address] Care Team Providers Name Role Phone Svetlana Ariza Primary Care Provider Reason for Visit Auth/Cert Status Reason Specialty Diagnoses / Referred By Referred To Procedures Contact Contact Emergency Medicine Ad[facility] Em ergency Dept [address] [place] [phone] Fax: Encounter Details Date Type Department Care Team Description 12/13/2019 Anesthesia [facility] Bianca Parsons MD [facility] [address] [place] [address] [place] [address] [place], [place] [id number] Allergies No Known Allergiesdocumented as of this encounter (statuses as of 12/14/2019) Medications Medication Sig Dispensed Refills Start Date End Date Status hydroCHLOROthiazide 25 mg Take 1 30 tablet 2 08/25/2019 Suspended tabletIndications: tablet by Peripheral arterial mouth every disease morning. Additional information aspirin 81 mg chewable Take 1 tablet by 30 tablet 2 08/25/2019 Suspended tabletIndications: Peripheral mouth daily. arterial disease Additional information HYDROcodone-acetaminophen (NORCO) Take 1 tablet 28 tablet 0 Suspended 10-325 mg tabletIndications: by mouth every Peripheral vascular disease, 6 (six) hours unspecified as needed for Pain (scale 7-10). Additional information simvastatin 20 mg Take 1 tablet by 30 tablet 2 08/25/2019 Suspended tabletIndications: Peripheral mouth at bedtime. arterial disease Additional information traMADol 50 mg Take 1 tablet by 20 tablet 0 08/29/2019 Suspended tabletIndications: Peripheral mouth every 8 vascular disease, unspecified (eight) hours as needed for Pain (scale 4-6) or Pain (scale 7-10). Additional information FUROSEMIDE, BULK, MISC 0 Suspended ibuprofen 800 mg Take 1 tablet by 60 tablet 2 11/05/201901/03 Suspended tabletIndications: mouth 2 (two) Critical ischemia of times daily as lower extremity, Heel needed for Pain ulcer, left, with fat (scale 4-6) for up layer exposed to 60 days. Additional information gabapentin 600 mg Take 1 tablet 90 tablet 1 12/03/2019 020 Suspended tabletIndications: by mouth 3 Peripheral vascular (three) times disease, unspecified daily for 60 days. Additional information buPROPion 200 mg 12 hr Take 1 tablet 60 tablet 0 12/03/2019 Suspended tabletIndications: by mouth 2 Peripheral vascular (two) times disease, unspecified daily for 30 days. Additional information documented as of this encounter (statuses as of 12/14/2019) Active Problems Problem Noted Date Closed left hip fracture 12/12/2019 Infection of left foot 09/07/2019 Critical lower limb ischemia 08/23/2019 Peripheral vascular disease, unspecified 07/31/2019 Overview: Added automatically from request for tono juarze [id number] documented as of this encounter (statuses as of 12/14/2019) Immunizations Name Administration Dates Next Due Pneumococcal Polysaccharide, PPSV23 (PNEUMOVAX) 09/12/2019 TDAP (ADACEL) VACCINE 12/11/2019 documented as of this encounter Social History Tobacco Use Types Packs/Day Years Used Date Current Every Day Smoker Smokeless Tobacco: Never Used Comments: 1 ppd Alcohol Use Drinks/Week oz/Week Comments Yes 4-6 Cans of beer 4.0 - 6.0 Sex Assigned at Date Recorded Not on file Job Start Date Occupation Industry Not on file Not on file Not on file Travel History Travel Start Travel End No recent travel history available. COVID-19 Exposure Response Date Recorded In the last month, have you been in contact with No / Unsure 12/12/2019 6:22 AM CDT someone who was confirmed or suspected to have Coronavirus / COVID-19? documented as of this encounter Last Filed Vital Signs Vital Sign Reading Time Taken Comments Blood Pressure - - Pulse - - Temperature - - Respiratory Rate 24 12/13/2019 2:03 PM CDT Oxygen Saturation - - Inhaled Oxygen Concentration - - Weight - - Height - - Body Mass Index - - documented in this encounter Plan of Treatment Date Type Specialty Care Team Description 01/07/2020 Office Visit Vascular Surgery Faculty, Vascular Surg Health Maintenance Due Date Last Done Comments HEPATITIS C (HCV) SCREEN 1960 COLONOSCOPY 2011 Zoster Recombinant Vaccine (SHINGRIX) (1 of 2) 2011 LUNG CANCER SCREEN: Recommended for age 55-80 with 30 02/27/2016 + pack year history INFLUENZA VACCINE (Season Ended) 2020 Depression Screening 12/12/2020 12/13/2019 DTaP,Tdap,and Td Vaccines (2 - Td) 12/10/2029 12/11/2019 PNEUMOCOCCAL 0-64 YEARS COMBINED SERIES Completed 09/12/19 20 documented as of this encounter Implants Implanted Type Area Chef De Froid Device Shelf Model / Identifier Expiration Serial / Lot Date Cannulated Screw SCREW Left: Hip Synthes 209 .900 / Implanted: Qty: 2 on 12/13/2019 by Gagandeep Crane MD at [facility] N /A / N/A Cannulated Screw SCREW Left: Hip Synthes 209 .[id number] / Implanted: Qty: 1 on 12/13/2019 by Gagandeep Crane MD at [facility] N /A / N/A Angio-Seal Evolution Vascular Closure Device [employer] #[id number] - Sna Right: Terumo 02/01/2020 [id number] / Implanted: Qty: 1 on 08/10/2019 by Mckay Bonilla Jr., MD at [facility] / [id number] documented as of this encounter Procedures Procedure Name Priority Date/Time Associated Diagnosis Comme nts INTUBATION Routine 12/13/2019 1:19 PM Results for this CDT procedure are i n the results section . documented in this encounter Results Intubation (12/13/2019 1:19 PM CDT) Narrative Performed At Don Saul CRNA 12/13/2019 1:22 PM Intubation Date/Time: 12/13/2019 12:49 PM Urgency: emergent Airway not difficult General Information and Staff Patient location during procedure: OR Resident/CARGO SERVICES COORDINATOR: Don Saul CRNA Consent for Airway (if performed for an anesthetic, see related documentation for consents) Patient identity confirmed: verbally wit h patient, hospital-assigned identification number and arm band Consent: No emergent situation. Verbal c onsent not obtained. Written consent obtained. Risks and benefits: risks, benefits and alternatives were discussed Consent given by: patient Indications and Patient Condition Indications for airway management: anest hesia Spontaneous ventilation: present Sedation level: deep Preoxygenated: yes Patient position: sniffing MILS maintained throughout Mask difficulty assessment: 0 - not atte mpted No planned trial extubation Final Airway Details Final airway type: endotracheal airway Successful airway: ETT Cuffed: yes Successful intubation technique: direct laryngoscopy Endotracheal tube insertion site: oral Blade: Reyes Blade size: #2 ETT size (mm): 7.0 Cormack-Lehane Classification: grade IIb - view of can tenoids or posterior of glottis only Placement verified by: chest auscultatio n and capnometry Measured from: lips ETT to lips (cm): 22 Number of attempts at approach: 1 Number of other approaches attempted: 0 documented in this encounter Administered Medications Medication Order MAR Action Action Date Dose Rate Site dexamethasone (DECADRON PHOSPHATE) Given 12/13/2019 1:39 PM CDT 8 mg injection IV Push, ONCE INTRA PROCEDURE, Starting Nikia 12/13/19 at 1339, Until Nikia 12/13/19 at 1420, Routine, Intra-op FENTanyl PF (SUBLIMAZE (PF)) injection Given 12/13/2019 1:35 PM CDT 50 mcg ONCE INTRA PROCEDURE, Starting Nikia 12/13/19 at 1256, Until Tue12/14/19 at 1026, Routine, Intra-op Given 12/13/2019 12:56 PM CDT 50 mcg lactated ringers IV infusion New Bag 12/13/2019 12:47 PM CDT IV Infusion, CONTINUOUS PRN, Starting Nikia 12/13/19 at 1247, Until Nikia 12/13/19 at 1425, Routine, Intra-op lidocaine 1% (XYLOCAINE) 100 mg/10 mL (1 %) Given 12/13/2019 12: 55 PM CDT 8 mL injection ONCE INTRA PROCEDURE, Starting Nikia 12/13/19 at 1255, Until Nikia 12/13/19 at 1420, Routine, Intra-op midazolam (VERSED) injection Given 12/13/2019 12:56 PM CDT 2 mg IV Push, ONCE INTRA PROCEDURE, Starting Nikia 12/13/19 at 1256, Until Nikia 12/13/19 at 1420, Routine, Intra-op ondansetron (ZOFRAN (PF)) injection Given 12/13/2019 1:39 PM CDT 4 mg Slow IV Push, ONCE INTRA PROCEDURE, Starting Nikia 12/13/19 at 1339, Until Nikia 12/13/19 at 1420, Routine, Intra-op propofol IV infusion Given 12/13/2019 12:56 PM CDT 130 mg Intravenous, ONCE INTRA PROCEDURE, Starting Nikia 12/13/19 at 1256, Until Tue12/14/19 at 1027, Routine, Intra-op sugammadex (BRIDION) injection Given 12/13/2019 1:39 PM CDT 136 mg IV Push, ONCE INTRA PROCEDURE, Starting Nikia 12/13/19 at 1339, Until Nikia 12/13/19 at 1420, Routine, Intra-op documented in this encounter
--- OUTSIDE RECORDS SUMMARY | 2019-12-27 11:18 | XMS REPORT | Summary of Care ---
:1960 Author Organization [facility] Address [address] [place] [phone] Care Team Providers Name Role Phone To Svetlana Primary Care Provider Reason for Referral (Routine) Status Reason Specialty Diagnoses / Referred By Referred To Procedures Contact Contact New Request ORT-ORTHOPAEDIC Diagnoses Closed fracture of left hip, initial encounter Allan Kyle, SURGERY Procedures Discharge Follow-Up: Specialty Service ORT-ORTHOPAEDIC SURGERY ([place]ita); [address] [place] [phone] (Routine) Status Reason Specialty Diagnoses / Referred By Referred To Procedures Contact Contact New Request Diagnostic Diagnoses Closed fracture of left hip, initial encounter Rita, Radiology Procedures FL TIME OR (NON-REPORTABLE) Gagandeep Lyon MD [address] [place] [address] [phone] (Routine) Status Reason Specialty Diagnoses / Referred By Referred To Procedures Contact Contact New Request Vascular Surgery Procedures Allan Kyle, UNILATERAL DUPLEX SCAN OF ARTERY BY [address] [place] [address] [place] [address] Radiology Services ([facility]) Status Reason Specialty Diagnoses / Referred By Referred To Procedures Contact Contact New Request Diagnostic Diagnoses Infection of left foot Allan Kyle, Radiology Procedures XR HEEL 2+ VW LEFT [address] [place] [phone] Radiology Services (STAT) Status Reason Specialty Diagnoses / Referred By Referred To Procedures Contact Contact New Request Diagnostic Diagnoses Pain of left hip joint Neftali Arriola, Radiology Procedures XR PELVIS <3 [address] [address] Radiology Services (STAT) Status Reason Specialty Diagnoses / Referred By Referred To Procedures Contact Contact New Request Diagnostic Diagnoses Pain of left hip joint Neftali Arriola, Radiology Procedures XR HIPS 2 VW LEFT MD [place] [address] [address] Reason for Visit Reason Comments Hip Pain Left Auth/Cert Status Reason Specialty Diagnoses / Referred By Referred To Procedures Contact Contact Emergency Medicine [facility] [address] [place] [phone] Fax: Encounter Details Date Type Department Care Team Description 12/12/2019 - [facility] ADC Medicine Neftali Arriola MD [address] [phone] Closed left hip 12/14/2019 Encounter Surgery Unit Allan Kyle MD [address] [place] [address] [phone] [place] [phone] Allergies No Known Allergiesdocumented as of this encounter (statuses as of 12/14/2019) Medications Medication Sig Dispensed Refills Start End Status Date Date hydroCHLOROthiazide 25 Take 1 tablet 30 tablet 2 Active mg tabletIndications: by mouth every 0 Peripheral arterial morning. disease aspirin 81 mg chewable Take 1 tablet 30 tablet 2 Active tabletIndications: by mouth 0 Peripheral arterial daily. disease HYDROcodone-acetaminoph Take 1 tablet 28 tablet 0 Active en (NORCO) 10-325 mg by mouth every 0 tabletIndications: 6 (six) hours Peripheral vascular as needed for disease, unspecified Pain (scale 7-10). simvastatin 20 mg Take 1 tablet 30 tablet 2 Active tabletIndications: by mouth at 0 Peripheral arterial bedtime. disease traMADol 50 mg Take 1 tablet 20 tablet 0 A ctive tabletIndications: by mouth every 0 Peripheral vascular 8 (eight) disease, unspecified hours as needed for Pain (scale 4-6) or Pain (scale 7-10). FUROSEMIDE, BULK, MISC 0 Active gabapentin 600 mg Take 1 tablet 90 tablet 1 Active tabletIndications: by mouth 3 0 020 Peripheral vascular (three) times disease, unspecified daily for 60 days. buPROPion 200 mg 12 hr Take 1 tablet 60 tablet 0 07/05 Active tabletIndications: by mouth 2 0 020 Peripheral vascular (two) times disease, unspecified daily for 30 days. clindamycin 300 mg Take 1 capsule 90 capsule 0 01/12 Active capsuleIndications: by mouth 3 0 020 Closed fracture of left (three) times hip, initial encounter daily for 30 days. apixaban 2.5 mg Take 1 tablet 60 tablet 0 Active tabletIndications: hip by mouth 2 0 020 surgery deep vein (two) times thrombosis prevention daily for 30 days. Indications: deep vein thrombosis prevention in hip surgery levoFLOXacin 500 mg Take 1 tablet 30 tablet 0 Active tabletIndications: by mouth every 0 Closed fracture of left 24 hip, initial encounter (twenty-four) hours. acidophilus 100 million Take 1 tablet 180 tablet 0 Active cell tabletIndications: by mouth 2 0 Closed fracture of left (two) times hip, initial encounter daily. GABAPENTIN, BULK, MISC 800 mg. 0 Discontinued 020 ibuprofen 800 mg Take 1 tablet 60 tablet 2 Discontinued tabletIndications: by mouth 2 0 020 Critical ischemia of (two) times lower extremity, [...] Added automatically from request for tono juarez [id number] documented as of this encounter (statuses as [...] Sign Reading Time Taken Comments Blood Pressure 157/77 12/14/2019 3:08 PM CDT Pulse 62 12/14/2019 3:08 PM CDT Temperature 37.1 C (98.7 F) 12/14/2019 3:08 PM CDT Respiratory Rate 18 12/14/2019 3:08 PM CDT Oxygen Saturation 99% 12/14/2019 3:08 PM CDT Inhaled Oxygen Concentration - - Weight 68 kg (150 lb) 12/12/2019 8:26 AM CDT Height 177.8 cm (5' 10") 12/12/2019 8:26 AM CDT Body Mass Index 21.52 12/12/2019 8:26 AM CDT documented in this encounter Discharge Instructions InstructionsCoAudrey barboza RN - 12/14/2019 Patient Discharge Instructions Discharge date: 12/14/2019 Procedure(s): Procedure(s): FEMUR INTRAMEDULLARY NAILING Discharge Orders Regular Diet; Texture: Regular. Texture Regular. Diabetic: No Discharge Condition - Discharge Condition: GOOD Discharge Activity Discharge Activity: As Tolerated Discharge Follow-Up: Specialty Service ORT-ORTHOPAEDIC SURGERY ([place]); 2 Weeks Specialty: ORT-ORTHOPAEDIC SURGERY [26] [place] Patient's Preferred Location: [place] Discharge Disposition: Home Health not related to Admit, (ARS) When (Patients with risk for unplanned readmission score over 16 or those noted as Hospital Dependent should follow up within 7 days with PCP or primary DX specialist): 2 Weeks Risk of Unplanned Readmission:( Score greater than 16 indicates high risk) 11 VTE Propylaxis- Was ordered during hospitalization Discharge Instructions Order Comments: Please take eliquis (blood-thinner) as directed to prevent blood clots from developing in your leg. You also need to take the antibiotics (clindamycin, levaquin) as prescribed for your heel wound infection. Please follow-up with Vascular surgery and Orthopedic surgery in 2 weeks. Follow instructions as indicated below: 1. The medication that was used will be acting in your system for the next 24 hours, so you might feel a little drowsy, with impaired judgment and or motor function. This feeling should go wear off. Because the medication is still in your system for the next 24 hours you SHOULD NOT: Drive a car, operate machinery or power tool. Drink any alcohol beverages (including beer or wine). Make any important decisions or sign any legal documents. 2. You should rest the remainder of the day and not engage in any physical activity. Move slowly today. After lying down, sit on the edge of the bed for a moment before standing. YOU ARE RESPONSIBLEFOR HAVING SOMEONE AT HOME WITH YOU DURING THE AFTERNOON AND NIGHT IMMEDIATELY FOLLOWING YOUR SURGERY. Patient should cough and deep breathe every 2-4 hours while awake to avoid respiratory complications. 4. Lifting: {IP DISCHARGE INSTRUCTIONS LIFTIN::"No medical restrictions"} 5. Weight: In general, sudden weight gains or losses should be reported to your provider. Cardiac patients should weigh daily and notify their provider for a weight gain of 3 pounds per day or 5 pounds per week. 6. Tobacco Avoidance: Follow recommendations below 7. Because the medications used could procedure some residual nausea and vomiting after you go home,you should eat lightly today, starting with clear liquids (broth, soft drinks, apple juice, jello) and toast or crackers, progressing to bland solid foods and then to your normal diet as tolerated, unle ss otherwise stated by your surgeon. If you get sick, wait a couple of hours and then begin to eat. After 24 hours the nausea should be gone. 8. You may experience some pain and your physician will advise you on what to take for discomfort. This should be taken as directed. If the pain is not relieved, contact your physician. You may alsohave a sore throat from the airway that was in place. You may uses lozenges, throat spray (such as C hloraseptic), or warm salt water gargles for symptomatic relief. 9. If you feel warm, take your temperature. If it is 101 degrees or above call your physician. 10. If you are unable to urinate within five hours after your procedure, call your physician. 11. The type of surgery performed will determine how much bleeding (if any) to expect. Normally, some spotting might occur. If your dressing pad becomes saturated, notify your physician. Elevate surgical site, if applicable, to reduced swelling and pain. 12. Wound/dressing care: Tips on preventing a surgical site infection.. Dont smoke. It is best to quit at least 30 days before surgery, but quitting after surgery is also helpful. If you are diabetic, keep your blood sugar well controlled. WASH YOUR HANDS. Keep your wound clean and remember to wash your hands before and after contact with the area. All health care workers should also wash their hands or use an alcohol based hand rub prior to examining you. If antibiotics are prescribed, take them as directed. Finish the entire course of antibiotics. Call your doctor if you have signs of infection: ? Increased tenderness at the surgical site ? Red streaks or increased redness of the area ? Bad-smelling discharge from the incision ? Fever of 101F or higher ? General tired feeling that doesnt improve 13. Other discharge instructions: {DC IP DISCHARGE INSTRUCTIONS OTHER:06509} 14. Special Instructions: Take Home Medications These are medications ordered for you by your healthcare provider. Do not take any other medications or supplements unless advised by your healthcare provider. Current Discharge Medication List START taking these medications Details acidophilus 100 million cell tablet Take 1 tablet by mouth 2 (two) times daily. Qty: 180 tablet, Refills: 0 Associated Diagnoses: Closed fracture of left hip, initial encounter apixaban 2.5 mg tablet Take 1 tablet by mouth 2 (two) times daily for 30 days. Indications: deep vein thrombosis prevention in hip surgery Qty: 60 tablet, Refills: 0 Associated Diagnoses: Closed fracture of left hip, initial encounter clindamycin 300 mg capsule Take 1 capsule by mouth 3 (three) times daily for 30 days. Qty: 90 capsule, Refills: 0 Associated Diagnoses: Closed fracture of left hip, initial encounter levoFLOXacin 500 mg tablet Take 1 tablet by mouth every 24 (twenty-four) hours. Qty: 30 tablet, Refills: 0 Associated Diagnoses: Closed fracture of left hip, initial encounter CONTINUE these medications which have NOT CHANGED Details buPROPion 200 mg 12 hr tablet Take 1 tablet by mouth 2 (two) times daily for 30 days. Qty: 60 tablet, Refills: 0 Associated Diagnoses: Peripheral vascular disease, unspecified gabapentin 600 mg tablet Take 1 tablet by mouth 3 (three) times daily for 60 days. Qty: 90 tablet, Refills: 1 Associated Diagnoses: Peripheral vascular disease, unspecified FUROSEMIDE, BULK, MISC traMADol 50 mg tablet Take 1 tablet by mouth every 8 (eight) hours as needed for Pain (scale 4-6) orPain (scale 7-10). Qty: 20 tablet, Refills: 0 Associated Diagnoses: Peripheral vascular disease, unspecified aspirin 81 mg chewable tablet Take 1 tablet by mouth daily. Qty: 30 tablet, Refills: 2 Associated Diagnoses: Peripheral arterial disease hydroCHLOROthiazide 25 mg tablet Take 1 tablet by mouth every morning. Qty: 30 tablet, Refills: 2 Associated Diagnoses: Peripheral arterial disease HYDROcodone-acetaminophen (NORCO) 10-325 mg tablet Take 1 tablet by mouth every 6 (six) hours as needed for Pain (scale 7-10). Qty: 28 tablet, Refills: 0 Associated Diagnoses: Peripheral vascular disease, unspecified simvastatin 20 mg tablet Take 1 tablet by mouth at bedtime. Qty: 30 tablet, Refills: 2 Associated Diagnoses: Peripheral arterial disease STOP taking these medications ibuprofen 800 mg tablet Comments: Reason for Stopping: Follow-up appointments: Your follow up appointment with your surgeon has been made. Appointment Date: , Appointment Time . For questions regarding follow-up instructions call the Healthcare Hotline at or If you experience any of the following symptoms , please follow up with . For worsening symptoms/changing condition/problems or questions: Non-emergency/urgent: Call the Healthcare Hotline at or or Emergency: Go to the closest emergency room or call 911 Translated by Date Time If you receive the patient satisfaction survey by mail please complete and return and let us know how we are doing. TOBACCO AVOIDANCE Exposure to tobacco either from smoking or from second hand (environmental) smoke or smokeless tobacco (snuff) is damaging to your health. This information is to encourage everyone to avoid tobacco exposure. It is recommended that you: ? If you smoke or use smokeless tobacco, we encourage you to quit. ? If you have already quit smoking, continue your good work! ? If you do not smoke or use smokeless tobacco, do not start. ? Avoid secondhand smoke. Additional Resources You may want to contact these organizations for further information on smoking and how to quit. [employer], http://www.lungusa.org/stop-smoking/ [employer], http://www.cancer.org/Healthy/StayAwayfromTobacco/index [place] [employer], http://www.heart.org/HEARTORG/GettingHealthy/QuitSmoking/Quit-Smoking_[facility] _001085_SubHomePage.jsp AttachmentsThe following attachments cannot be sent through Care Everywhere.Hip Fracture Surgery, Discharge Instructions for (Taiwanese)Hip Fracture, After a: Common Questions (Taiwanese)Hip Fractures, Understanding (Taiwanese)Pressure Injuries, Cleaning and Dressing, Staff Ed (Taiwanese)Pressure Sores,Preventing (Taiwanese)Pressure Injury, Discharge Instructions for (Taiwanese)Clindamycin capsules (Taiwanese)Apixaban oral tablets (Taiwanese)Levofloxacin tablets (Taiwanese) Lactobacillus Oral formulations (Taiwanese)documented in this encounter Progress Notes Xochitl Rose, BRIDGETTE - 12/14/2019 11:44 AM CDT Care Management Discharge Disposition Note (DCDN) 5-2-1 Interventions: Teach back;Disease specific education 5-2-1 Providers: Nurse;Security Control Center Operator/Raw Stock Machine Feeder;Physician 5-2-1 Patient Capacity Improvements: Discharge Plan for ongoing care and services: Is this a new referral: Patient Choice completed for referred services: DME location: Other DME location: Durable Medical Equipment: Home Health location: Discharge location(s): Patient choice completed for referred services: Discussed with patient/patients family involved in decision making: Patient or family caregiver understands, and agrees with discharge plan. Community resources/referrals made or provided to patient: Resources/Referrals: [facility]igent [facility] Resources Fact Sheets Transportation: Private Vehicle Mental Status: Alert & Oriented to Person,Place & Time Living Arrangement: Home Other living arrangement: Address of living arrangement: [address] [place] [address] [place] [address] Funding Resources: Self Pay Nursing informed of discharge plan: Yes Name of RN informed: Audrey Talbot RN Expected discharge date: 12/14/2019 Time: Afternoon [30] Additional Information: CM providing patient with a walker to dc home with as he is unfunded. Per PT, pt is safe to dc without home health or continued rehab. CM/SW Name & Contact number: BRIDGETTE Rowe Ph. [phone] The following information has been provided to the facility noted above: reason for the patient discharge or transfer; patients physical and psychosocial status; summary of care, treatment, servicesprovided to patient; and the patient progress toward goals. Jeremy Schuler FNP - 12/14/2019 8:49 AM CDT Subjective: Patient is a 59-year-old male who presents after taking a fall. Patient reports being seen in the emergency room last night s/p fall and was sent home with crutches. Patient reports taking another fall today from tripping over the crutches. Patient found to have Left hip femoral fracture. Patient also presents with wound to Left heel which I have been consulted for. Patient reports seen by vascular surgeon in the past. Patient examined at bedside. Patient s/p Left hip closed reduction surgery 12/12. Reports pain to left hip 09/10. Denies nausea, diarrhea, fever and shortness of breath. Objective: Vitals: 12/13/19 1937 12/14/19 0004 12/14/19 0404 12/14/19 0721 BP: (!) 143/81 (!) 155/91 (!) 172/96 (!) 174/91 Pulse: 72 70 62 62 Resp: 16 18 16 18 Temp: 36.9 C (98.4 F) 37.1 C (98.7 F) 37 C (98.6 F) 37 C (98.6 F) TempSrc: Temporal Artery Temporal Artery Temporal Artery SpO2: 95% 99% 97% 99% Weight: Height: CBC WBC (10*3/L) Date Value 12/14/2019 8.97 RBC (10*6/L) Date Value 12/14/2019 4.53 PLT (10*3/L) Date Value 12/14/2019 255 HGB (g/dL) Date Value 12/14/2019 14.7 HCT (%) Date Value 12/14/2019 41.7 CMP NA (mmol/L) Date Value 12/13/2019 132 (L) K (mmol/L) Date Value 12/13/2019 3.5 CALCIUM (mg/dL) Date Value 12/13/2019 8.8 CL (mmol/L) Date Value 12/13/2019 96 (L) BUN (mg/dL) Date Value 12/13/2019 14 CREATININE (mg/dL) Date Value 12/13/2019 1.11 GLUCOSE (mg/dL) Date Value 12/13/2019 99 CO2 TOTAL (mmol/L) Date Value 12/13/2019 29 ALBUMIN (g/dL) Date Value 12/12/2019 4.4 T PROTEIN (g/dL) Date Value 12/12/2019 7.6 TOTAL BILI (mg/dL) Date Value 12/12/2019 0.9 BILI UNCON (mg/dL) Date Value 12/12/2019 0.8 BILI CONJ (mg/dL) Date Value 12/12/2019 0.0 ALTv (U/L) Date Value 12/12/2019 16 AST(SGOT) (U/L) Date Value 12/12/2019 29 ALK PHOS (U/L) Date Value 12/12/2019 117 Left hip xray 12/11: EXAM: XR PELVIS <3 VW, EXAM: XR HIPS 2 VW LEFT HISTORY: fall/pain COMPARISON: Left lower extremity angiogram 08/01/2019. FINDINGS: Radiographs of the pelvis and left hip demonstrate cortical irregularity and impaction at the femoral head neck junction superiorly inferiorly. No joint dislocation is identified. Vascular calcifications and surgical clips are seen. Moderate soft tissue swelling surrounds the left hip. IMPRESSION Left femoral neck fracture. ROS: General:Awake, alert, no acute distress CV:S1, S2 RESP:good breath sounds ABD:flat, nontender, bowel sounds present :Mcclellan catheter in place Extremities:mild swelling the left foot, 1+ pedal pulses Skin:. Left heel unstageable ulcer with eschar, slough and foul odor. Left hip with surgical dressing CDI Assessment and plan: Left heel Unstageable ulcer, recommend surgical debridement Educated patient on the severity of left heel wound and possibility of amputation if not taken careof Left hip femoral neck fracture, s/p reduction 12/12 Currently on Vancomycin and Zosyn Recommend total of 4 weeks of IV antibiotics If DC home, can change to Levaquin 500mg PO daily and Clindamycin 300mg PO Q8h for total of 4 weeks Patient needs to follow up with vascular surgeon Will continue to monitor Patient examined and discussed with Dr. Winkler Allan Vale MD - 12/13/2019 5:33 PM CDT [facility] [place] Hospitalist Progress Note SUBJECTIVE: Pain well controlled this morning. CURRENT MEDICATIONS - reviewed. Current Facility-Administered Medications Medication Dose Route Frequency Last Rate Last Dose lactated ringers IV infusion 1,000 mL 1,000 mL IV Infusion CONTINUOUS sodium chloride 0.9 % irrigation solution PRN 1,000 mL at 12/13/19 1320 acetaminophen (TYLENOL) tablet 650 mg 650 mg Oral Q6HPRN aspirin chewable tablet 81 mg 81 mg Oral DAILY 81 mg at 12/13/19 0833 D5W 0.9% NaCl (NS) IV infusion 1,000 mL 1,000 mL IV Infusion CONTINUOUS 125 mL/hr at 12/13/19 0429 1,000 mL at 12/13/19 0429 gabapentin (NEURONTIN) tablet 600 mg 600 mg Oral TID 600 mg at 12/13/19 1400 hydroCHLOROthiazide (ESIDRIX) tablet 25 mg 25 mg Oral QAM 25 mg at 12/13/19 0833 HYDROcodone-acetaminophen (NORCO 5) 5-325 mg tablet 2 tablet 2 tablet Oral Q6HPRN piperacillin-tazobactam (ZOSYN) 3.375 gram/50 mL Piggyback RTU 3.375 g 3.375 g IV Piggyback Q8HABX 3.375 g at 12/13/19 1454 simvastatin (ZOCOR) tablet 20 mg 20 mg Oral QHS 20 mg at 12/12/19 2102 vancomycin 1000 mg in NS 200 mL RTU IV Piggyback 1,000 mg 1,000 mg IV Piggyback Q12H ABX 1,000 mg at 12/13/19 0833 PHYSICAL EXAM: BP (!) 185/84 | Pulse 73 | Temp 36.4 C (97.6 F) (Temporal Artery) | Resp 16 | Ht 5' 10" (1.778 m) | Wt 150 lb (68 kg) | SpO2 100% | BMI 21.52 kg/m General: No respiratory distress Skin: No rash or lesions Neuro: AAOx3, no focal deficits Psych: Normal affect LABS/IMAGING - reviewed, pertinent results as below: CBC BMP PT/INR WBC (10*3/L) Date Value 12/13/2019 9.19 NA (mmol/L) Date Value 12/13/2019 132 (L) No results found for: PT RBC (10*6/L) Date Value 12/13/2019 4.56 K (mmol/L) Date Value 12/13/2019 3.5 INR (no units) Date Value 12/12/2019 1.1 PLT (10*3/L) Date Value 12/13/2019 269 CALCIUM (mg/dL) Date Value 12/13/2019 8.8 HGB (g/dL) Date Value 12/13/2019 15.0 CL (mmol/L) Date Value 12/13/2019 96 (L) aPTT HCT (%) Date Value 12/13/2019 42.2 BUN (mg/dL) Date Value 12/13/2019 14 APTT Patient (Seconds) Date Value 12/12/2019 26 CREATININE (mg/dL) Date Value 12/13/2019 1.11 IMAGING- Hospital Encounter on 12/12/19 XR PELVIS <3 VW Narrative EXAM: XR PELVIS <3 VW, EXAM: XR HIPS 2 VW LEFT HISTORY: fall/pain COMPARISON: Left lower extremity angiogram 08/01/2019. FINDINGS: Radiographs of the pelvis and left hip demonstrate cortical irregularity and impaction at the femoral head neck junction superiorly inferiorly. No joint dislocation is identified. Vascular calcifications and surgical clips are seen. Moderate soft tissue swelling surrounds the left hip. Impression Left femoral neck fracture. Preliminary Report Dictated by Resident: Lukasz Brandon MD., have reviewed this study and agree with the above report. XR HIPS 2 VW LEFT Narrative EXAM: XR PELVIS <3 VW, EXAM: XR HIPS 2 VW LEFT HISTORY: fall/pain COMPARISON: Left lower extremity angiogram 08/01/2019. FINDINGS: Radiographs of the pelvis and left hip demonstrate cortical irregularity and impaction at the femoral head neck junction superiorly inferiorly. No joint dislocation is identified. Vascular calcifications and surgical clips are seen. Moderate soft tissue swelling surrounds the left hip. Impression Left femoral neck fracture. Preliminary Report Dictated by Resident: Sandra Lazo I, Lukasz Becerril MD., have reviewed this study and agree with the above report. XR HEEL 2+ VW LEFT Narrative EXAM: XR HEEL 2+ VW LEFT HISTORY: Evaluate for osteomyelitis COMPARISON: None FINDINGS: Imaging of the calcaneus demonstrates no coalition. A large heel pad ulceration is seen with superimposed radiopaque debris. No aggressive bony destructive change or periosteal reaction is seen. Soft tissue swelling and osteopenia are present. Diabetic type vascular calcifications are present. Impression Heel pad ulceration with foreign bodies and no established osteomyelitis. FL TIME OR (NON-REPORTABLE) Narrative These images do not require a Radiology diagnostic report. ASSESSMENT/PLAN Kodi Pop is a 59 year old male with PMH as listed above, admitted to the hospital with: Left hip fracture 2/2 mechanical fall Hx alcoholism S/p closed reduction, screw fixation by Dr. Salinas 12/13/19 TDWB until follow-up Needs DVT ppx at discharge Patient refused SNF. Needs home health for PT. Chronic left heel gangrene, hx PVD Evaluated by Dr. Shah. Recommends betadine-soaked guaze dressing change daily. ID on board. Will recommend po antibiotic regimen tomorrow. Hx PAD S/p endarterectomy 08/[address] Bonilla Repeat arterial duplex shows chronic changes Will f/u outpatient for possible bypass Alcoholism Monitor for withdrawal Prophylaxis: DVT- enoxaparin Stress Ulcer: no indication for prophylaxis Code Status: Full Disposition: Home health tomorrow [place] OIL DRILLING ENGINEER was verified during stay Allan Kyle MD Jeremy Schuler, YULIA - 12/13/2019 12:22 PM CDT Subjective: Patient is a 59-year-old male who presents after taking a fall. Patient reports being seen in the emergency room last night s/p fall and was sent home with crutches. Patient reports taking another fall today from tripping over the crutches. Patient found to have Left hip femoral fracture. Patient also presents with wound to Left heel which I have been consulted for. Patient reports seen by vascular surgeon in the past. Patient examined at bedside. Denies nausea, diarrhea, fever, shortness of breath. Patient to have surgical intervention for left hip fracture today. Objective: Vitals: 12/12/19 2343 12/13/19 0400 12/13/19 0730 12/13/19 1143 BP: (!) 144/80 (!) 165/95 (!) 162/83 (!) 164/88 Pulse: 66 70 66 64 Resp: 16 18 18 18 Temp: 37.6 C (99.6 F) 36.3 C (97.3 F) 36.7 C (98.1 F) 36.8 C (98.2 F) TempSrc: Temporal Artery Temporal Artery Temporal Artery Temporal Artery SpO2: 93% 97% 98% 98% Weight: Height: CBC WBC (10*3/L) Date Value 12/13/2019 9.19 RBC (10*6/L) Date Value 12/13/2019 4.56 PLT (10*3/L) Date Value 12/13/2019 269 HGB (g/dL) Date Value 12/13/2019 15.0 HCT (%) Date Value 12/13/2019 42.2 CMP NA (mmol/L) Date Value 12/13/2019 132 (L) K (mmol/L) Date Value 12/13/2019 3.5 CALCIUM (mg/dL) Date Value 12/13/2019 8.8 CL (mmol/L) Date Value 12/13/2019 96 (L) BUN (mg/dL) Date Value 12/13/2019 14 CREATININE (mg/dL) Date Value 12/13/2019 1.11 GLUCOSE (mg/dL) Date Value 12/13/2019 99 CO2 TOTAL (mmol/L) Date Value 12/13/2019 29 ALBUMIN (g/dL) Date Value 12/12/2019 4.4 T PROTEIN (g/dL) Date Value 12/12/2019 7.6 TOTAL BILI (mg/dL) Date Value 12/12/2019 0.9 BILI UNCON (mg/dL) Date Value 12/12/2019 0.8 BILI CONJ (mg/dL) Date Value 12/12/2019 0.0 ALTv (U/L) Date Value 12/12/2019 16 AST(SGOT) (U/L) Date Value 12/12/2019 29 ALK PHOS (U/L) Date Value 12/12/2019 117 Left hip xray 12/11: EXAM: XR PELVIS <3 VW, EXAM: XR HIPS 2 VW LEFT HISTORY: fall/pain COMPARISON: Left lower extremity angiogram 08/01/2019. FINDINGS: Radiographs of the pelvis and left hip demonstrate cortical irregularity and impaction at the femoral head neck junction superiorly inferiorly. No joint dislocation is identified. Vascular calcifications and surgical clips are seen. Moderate soft tissue swelling surrounds the left hip. IMPRESSION Left femoral neck fracture. ROS: General:Awake, alert, no acute distress CV:S1, S2 RESP:good breath sounds ABD:flat, nontender, bowel sounds present :Mcclellan catheter in place Extremities:mild swelling the left foot, 1+ pedal pulses Skin:. Left heel with dressing CDI. Liz-area with erythema Assessment and plan: Left heel Unstageable ulcer, recommend surgical debridement, can use betadine Left hip femoral neck fracture, patient to have surgical intervention today Currently on Vancomycin and Zosyn Recommend total of 4 weeks of antibiotics Patient needs to follow up with vascular surgeon Will continue to monitor Patient examined and discussed with Dr. Winkler Shelly Allen MD - 12/13/2019 11:47 AM CDT GENERAL SURGERY DAILY PROGRESS NOTE Patient Name: Kodi Pop Date of : 1960 Date: 12/13/2019 24 Hour Events: No issues overnight, patient c/o left heel pain. Physical Exam: Vital Signs Temp: [36.3 C (97.3 F)-37.6 C (99.6 F)] Pulse: [64-70] Resp: [16-18] BP: (144-165)/(80-95) MAP (mmHg): [99-110] Intake/Output Intake/Output Summary (Last 24 hours) at 12/13/2019 1148 Last data filed at 12/13/2019 0500 Gross per 24 hour Intake 240 ml Output 750 ml Net -510 ml Constitutional: Awake, alert, oriented, in no acute distress Head: Normocephalic, atraumatic Eyes: Extraocular movements grossly intact, pupils equal and reactive to light and accomodation, anicteric sclerae Ears: Normal external exam Nose: Normal external exam Mouth: Moist mucous membranes Neck: Supple, no jugular venous distention Respiratory: No respiratory distress Extremities: No clubbing, cyanosis, or edema Musculoskeletal: Normal tone and strength, normal range of motion Vascular: Left DP and PT pulses are nonpalpable Neurologic: CN II through XII grossly intact, no focal deficits Skin: Warm and dry, capillary refill <2 seconds, no jaundice; there are abrasions to dorsal aspect of the left 1st, 2nd, and 3rd toes; there is a pinpoint wound just above the left medial malleolus;there is a wound to the left heel measuring approximately approximately 5 cm, an eschar is present, the tissue below the eschar is not viable, there is no erythema or overt signs of infection, drainagecould not be illicited from the wound, the wound is somewhat malodorous, the wound was covered with Betadine soaked gauze followed by a dry dressing Psychiatric: Appropriate mood and affect, no obvious deficits of insight or judgment Labs: I independently reviewed the patient's labs. Results for KODI POP ( ) as of 12/13/2019 11:49 Ref. Range 12/13/2019 04:24 WBC x10^3 Latest Ref Range: 4.20 - 10.70 10*3/L 9.19 RBC x10^6 Latest Ref Range: 4.26 - 5.52 10*6/L 4.56 HGB Latest Ref Range: 12.2 - 16.4 g/dL 15.0 HCT Latest Ref Range: 38.4 - 49.3 % 42.2 MCV Latest Ref Range: 81.7 - 95.6 fL 92.5 MCH Latest Ref Range: 26.1 - 32.7 pg 32.9 (H) MCHC Latest Ref Range: 31.2 - 35.0 g/dL 35.5 (H) RDW-SD Latest Ref Range: 38.5 - 51.6 fL 40.1 RDW-CV Latest Ref Range: 12.1 - 15.4 % 11.9 (L) PLT x10^3 Latest Ref Range: 150 - 328 10*3/L 269 MPV Latest Ref Range: 9.8 - 13.0 fL 9.6 (L) NRBC /100 WBC Latest Ref Range: 0.0 - 10.0 /100 WBCs 0.0 NRBC x10^3 Latest Units: 10*3/L <0.01 GRAN MAT (NEUT) % Latest Units: % 70.7 IMM GRAN % Latest Units: % 0.40 LYMPH% Latest Units: % 17.2 MONO % Latest Units: % 10.0 EOS % Latest Units: % 0.8 BASO % Latest Units: % 0.9 GRAN MAT x10^3(ANC) Latest Ref Range: 1.99 - 6.95 10*3/uL 6.50 IMM GRAN x10^3 Latest Ref Range: 0.00 - 0.06 10*3/uL 0.04 LYMPH x10^3 Latest Ref Range: 1.09 - 3.23 10*3/uL 1.58 MONO x10^3 Latest Ref Range: 0.36 - 1.02 10*3/uL 0.92 EOS x10^3 Latest Ref Range: 0.06 - 0.53 10*3/uL 0.07 BASO x10^3 Latest Ref Range: 0.01 - 0.09 10*3/uL 0.08 NA Latest Ref Range: 135 - 145 mmol/L 132 (L) K Latest Ref Range: 3.5 - 5.0 mmol/L 3.5 CL Latest Ref Range: 98 - 108 mmol/L 96 (L) CO2 TOTAL Latest Ref Range: 23 - 31 mmol/L 29 AGAP Latest Ref Range: 2 - 16 7 BUN Latest Ref Range: 7 - 23 mg/dL 14 GLUCOSE Latest Ref Range: 70 - 110 mg/dL 99 CREATININE Latest Ref Range: 0.60 - 1.25 mg/dL 1.11 eGFR CALCULATION (non ) Latest Units: mL/min/1.73m2 68.0 eGFR CALCULATION () Latest Units: mL/min/1.73m2 82.5 CALCIUM Latest Ref Range: 8.6 - 10.6 mg/dL 8.8 Results for KODI POP ( ) as of 12/13/2019 11:49 Ref. Range 12/12/2019 18:44 HGB A1C Latest Ref Range: 4.0 - 6.0 % NGSP 5.1 Medications: Scheduled Medications aspirin 81 mg DAILY gabapentin 600 mg TID hydroCHLOROthiazide 25 mg QAM piperacillin-tazobactam 3.375 g Q8H ABX simvastatin 20 mg QHS vancomycin 1000 mg in NS 200 mL 1,000 mg Q12H ABX IV Medications/Drips D5W 0.9% NaCl (NS) Last Rate: 1,000 mL (12/13/19 0429) PRN Medications acetaminophen 650 mg Q6HPRN HYDROcodone-acetaminophen 2 tablet Q6HPRN Patient Active Problem List Diagnosis Peripheral vascular disease, unspecified Critical lower limb ischemia Infection of left foot Closed left hip fracture Assessment: Kodi Pop is a 59 year old male with a PMH significant for hypertension, peripheral vascular disease, tobacco abuse, and alcohol abuse admitted with a left hip fracture. He also has a chronic left heel wound. Plan: 1. Continue current wound care 2. When patient is discharged from hospital arrange for vascular surgery follow up for considerationfor revascularization Shelly Shah M.D. 12/13/2019 11:48 Xochitl Garcia [facility] - 12/12/2019 10:17 AM CDRAYMONDubjective Patient ID: Kodi Pop is a 59 year old male. Care Management Social Functional Assessment Patient Name: Kodi Pop Age: [age] year old Sex: male Patient's Previous Admission Date at [facility]: 09/07/2019 Current diagnosis and co-morbidities: closed left hip fx Readmission Questions: Was patient discharged from any acute care hospital within the last 30 days: No Social Functional Assessment: Primary language spoken/preferred: Taiwanese Mental Status: Alert & Oriented to Person,Place & Time Information given by: Self Patient's support system: Child Name and number of support system: Stephie Blankenshipubbs, dtr [phone] Primary Hospice Clinical Marketer: Self MPOA: No Living Arrangement: Home Address of living arrangement : [address] [place] [address] [place] [address] Persons living in home: Self Barriers to returning home: None Baseline functional status- ambulation: Independent Functional status-baseline personal care: Independent Baseline functional status- driving: Independent Baseline functional status- grocery shopping: Independent Functional status-baseline housekeeping: Independent Functional status-baseline meal prep: Independent Current functional status same as prior: Yes Do you have a PCP?: Yes Name of PCP: Svetlana Ariza [facility] Care Agency: No Provider Services: No DME Company: No Equipment: None Hemodialysis: No Community resources utilized: None Funding Resources: Self Pay Prescription coverage plan: Self Pay Pharmacy where meds are filled: Other Other pharmacy: [facility] Anticipated services prior to disharge: Continue Medical Eval Expected mode of discharge transportation: Same as support system Additional Recommendations for DC: Medical clearance Additional info required for discharge planning: Pending medical evaluation Recommended discharge plan: Home Alcohol Use Screening (AUDIT-C) How often do you have a drink containing alcohol?: Never SCORE: 0 Did patient elect to have resources provided: No Role of Care Management explained. Any issues or concerns with obtaining/affording your medications at home: no. Are you or your support system able to picker tender helper medications at discharge: yes. Review of Systems Objective Physical Exam Assessment/Plan Home, indigent application will be provided BRIDGETTE Huang Raw Stock Machine Feeder - Care Management [facility] [phone] [email or web address] documented in this encounter Plan of Treatment [...] of this encounter Implants Implanted Type Area Nurse Instructor Device Shelf Model / Identifier Expiration Serial / Lot Date Cannulated Screw SCREW Left: Hip Synthes 209 .900 / Implanted: Qty: 2 on 12/13/2019 by Gagandeep Crane MD at [facility] N /A / N/A Cannulated Screw SCREW Left: Hip Synthes 209 .895 / Implanted: Qty: 1 on 12/13/2019 by Gagandeep Crane MD at [facility] N /A / N/A Angio-Seal Evolution Vascular Closure Device [employer] #[id number] - Sna Right: Terumo 02/01/2020 [id number] / Implanted: Qty: 1 on 08/10/2019 by Mckay Bonilla Jr., MD at [facility] NA / [id number] documented as of this encounter Procedures Procedure Name Priority Date/Time Associated Comments Diagnosis CBC WITH DIFFERENTIAL Routine 12/14/2019 7:42 Re sults for this AM CDT procedure are i n the results section. CBC WITH DIFFERENTIAL Routine 12/14/2019 7:42 Re sults for this AM CDT procedure are i n the results section. BASIC METABOLIC PANEL Routine 12/14/2019 7:42 Re sults for this (NA, K, CL, CO2, AM CDT procedure a re in GLUCOSE, BUN, the results CREATININE, CA) section. VANCOMYCIN TROUGH Routine 12/14/2019 7:41 Result s for this AM CDT procedure are i n the results section. FL TIME OR Routine 12/13/2019 1:59 Closed fracture of Resul ts for this (NON-REPORTABLE) PM CDT left hip, initial proced ure are in encounter the results section. CBC WITH DIFFERENTIAL Routine 12/13/2019 4:24 Re sults for this AM CDT procedure are i n the results section. CBC WITH DIFFERENTIAL Routine 12/13/2019 4:24 Re sults for this AM CDT procedure are i n the results section. BASIC METABOLIC PANEL Routine 12/13/2019 4:24 Re sults for this (NA, K, CL, CO2, AM CDT procedure a re in GLUCOSE, BUN, the results CREATININE, CA) section. GLYCOSYLATED Routine 12/12/2019 6:44 Results for this HEMOGLOBIN (A1C) PM CDT procedure a re in the results section. XR HEEL 2+ VW LEFT YAMILEX 12/12/2019 3:14 Infection of left Results for this PM CDT foot procedure are i n the results section. UNILATERAL DUPLEX Routine 12/12/2019 2:40 SCAN OF ARTERY BY PM CDT VASCULAR LAB COVID-19 (PCR Routine 12/12/2019 7:33 Pain of left hip Result s for this MOLECULAR TESTING) AM CDT joint procedure are in Closed fracture of the resul ts left hip, initial section. encounter CBC WITH DIFFERENTIAL STAT 12/12/2019 7:28 Pain of left hi p Results for this AM CDT joint procedure are i n the results section. ACTIVATED PARTIAL STAT 12/12/2019 7:28 Pain of left hip Re sults for this THRMPLAS RYANNE AM CDT joint procedure are i n the results section. PROTHROMBIN TIME / STAT 12/12/2019 7:28 Pain of left hip R esults for this INR AM CDT joint procedure are i n the results section. CBC WITH DIFFERENTIAL Routine 12/12/2019 7:28 Pain of left hi p Results for this AM CDT joint procedure are i n the results section. BASIC METABOLIC PANEL STAT Add-On 12/12/2019 7:28 Pain of left hi p Results for this (NA, K, CL, CO2, AM CDT joint procedure are in GLUCOSE, BUN, Closed fracture of the resu lts CREATININE, CA) left hip, initial section . encounter HEPATIC FUNCTION STAT 12/12/2019 7:28 Pain of left hip Res ults for this PANEL (33780) AM CDT joint procedure are in (ALB,T.PRO,BILI the results T,BU/BC,ALT,AST,ALK section. PHOS) XR PELVIS <3 VW STAT 12/12/2019 6:53 Pain of left hip Resu lts for this AM CDT joint procedure are i n the results section. XR HIPS 2 VW LEFT STAT 12/12/2019 6:53 Pain of left hip Re sults for this AM CDT joint procedure are i n the results section. documented in this encounter Results CBC WITH DIFFERENTIAL (12/14/2019 7:42 AM CDT) [facility] nature WBC 8.97 4.20 - 10.70 [facility] 10*3/L H[facility]ITAL [facility] RBC 4.53 4.26 - 5.52 [facility] 10*6/L [facility]ITAL [facility] HGB 14.7 12.2 - 16.4 [facility] g/dL H[facility]ITAL [facility] HCT 41.7 38.4 - 49.3 % [facility] LABORATORY MCV 92.1 81.7 - 95.6 fL [facility] LABORATORY MCH 32.5 26.1 - 32.7 pg [facility] LABORATORY MCHC 35.3 (H) 31.2 - 35.0 [facility] g/dL [facility] RDW-SD 39.8 38.5 - 51.6 fL [facility] LABORATORY RDW-CV 11.7 (L) 12.1 - 15.4 % [facility] LABORATORY PLT 255 150 - 328 [facility] 10*3/L [facility] MPV 9.6 (L) 9.8 - 13.0 fL [facility] LABOR[facility]ORY NRBC/100 WBC 0.0 0.0 - 10.0 /100 [facility] WBCs [facility] NRBC x10^3 <0.01 10*3/L [facility] LABORATORY GRAN MAT (NEUT) % 67.4 % [facility] LABORATORY IMM GRAN % 0.40 % [facility] LABOR[facility]ORY LYMPH % 21.3 % [facility] MONO % 9.6 % [facility] LAB[facility]ORY EOS % 0.4 % [facility] LABOR[facility]ORY BASO % 0.9 % [facility] LABORATORY GRAN MAT x10^3(ANC) 6.04 1.99 - 6.95 [facility] 10*3/uL HOSPITAL LAB[facility] IMM GRAN x10^3 0.04 0.00 - 0.06 [facility] 10*3/uL [facility]ITAL [facility] LYMPH x10^3 1.91 1.09 - 3.23 [facility] 10*3/uL [facility]ITAL [facility] MONO x10^3 0.86 0.36 - 1.02 [facility] 10*3/uL [facility]ITAL [facility] EOS x10^3 0.04 (L) 0.06 - 0.53 [facility] 10*3/uL [facility]ITAL [facility] BASO x10^3 0.08 0.01 - 0.09 [facility] 10*3/uL [facility] Specimen Blood - ARM, RIGHT Performing Organization Address City/State/Zipcode Phone Number [facility] CLIA: [id number], [address] BASIC METABOLIC PANEL (NA, K, CL, CO2, GLUCOSE, BUN, CREATININE, CA) (12/14/2019 7:42 AM CDT) [facility] NA 132 (L) 135 - 145 [facility] mmol/L [facility] K 3.5 3.5 - 5.0 [facility] mmol/L [facility] CL 95 (L) 98 - 108 mmol/L [facility] CO2 TOTAL 32 (H) 23 - 31 mmol/L [facility] LAB[facility] AGAP 5 2 - 16 [facility] BUN 12 7 - 23 mg/dL [facility] GLUCOSE 119 (H) 70 - 110 mg/dL [facility] LAB[facility]ORY CREATININE 0.86 0.60 - 1.25 [facility] mg/dL [facility] CALCIUM 8.7 8.6 - 10.6 [facility] mg/dL [facility] eGFR Calculation 91.3 mL/min/1.73m2 [facility] (Non-[facility] LABORATORY Russian) eGFR Calculation 110.7 mL/min/1.73m2 [facility] () [facility] Specimen Blood - ARM, RIGHT Narrative Performed At [facility] Glomerular Filtration Rate (GFR) [facility] LAB[facility] and Staging of Kidney Disease* + + +- + | GFR (mL/min/1.73 m2) | With Kidney Damage | Without Kidney Damage + + +- + | >90 | Stage one | Normal + + +- + | 60-89 | Stage two | Decreased GFR + + +- + | 30-59 | Stage three | Stage three + + +- + | 15-29 | Stage four | Stage four + + +- + | <15 (or dialysis) | Stage five | Stage five + + +- + *Each stage assumes the associated GFR level has been in effect for at least three months. Stages 1 to 5, with or without kidney disease, indicate chronic kidney disease. Notes: Determination of stages one and two (with eGFR >59mL/min/1.73 m2) requires estimation of kidney damage for at least three months as defined by structural or functional abnormalities of the kidney, manifested by either: Pathological abnormalities or Markers of kidney damage (including abnormalities in the composition of the blood or urine or abnormalities in imaging tests). Performing Organization Address [facility] Services[facility] Phone Number [facility] CLIA: [id number], [address] [place], [place] [address] Vancomycin Trough Level - Draw immediately prior to the 0800 dose, but, no more than 60 minutes before (12/14/2019 7:41 AM CDT) Pathologist Sig [facility] VANCO TROUGH 10.2 10.0 - 20.0 ug/mL [facility] Specimen Blood - ARM, RIGHT Narrative Performed At Toxic Range: >20 ug/mL [facility] LABORATORY 15-20 ug/mL is recommended for severe infection or when Vancomycin TORIBIO is greater than or equal to 2. Performing Organization Address [facility] Servicescoid Phone Number [facility] CLIA: [id number], [address] [place], [place] [address] FL TIME OR (NON-REPORTABLE) (12/13/2019 1:59 PM CDT) Specimen Narrative Performed At These images do not require a Radiology diagnostic rep ort. PACS Performing Organization Address [facility] Phone Number PACS CBC WITH DIFFERENTIAL (12/13/2019 4:24 AM CDT) [facility] WBC 9.19 4.20 - 10.70 [facility] 10*3/L HOSPITAL LABORATORY RBC 4.56 4.26 - 5.52 [facility] 10*6/L HOSPITAL LAB[facility] HGB 15.0 12.2 - 16.4 [facility] g/dL [facility] HCT 42.2 38.4 - 49.3 % [facility] LABORATORY MCV 92.5 81.7 - 95.6 fL [facility] LABOR[facility]ORY MCH 32.9 (H) 26.1 - 32.7 pg [facility] LABORATORY MCHC 35.5 (H) 31.2 - 35.0 [facility] g/dL [facility] RDW-SD 40.1 38.5 - 51.6 fL [facility] LABORATORY RDW-CV 11.9 (L) 12.1 - 15.4 % [facility] LABORATORY PLT 269 150 - 328 [facility] 10*3/L HOSPITAL LAB[facility] MPV 9.6 (L) 9.8 - 13.0 fL [facility] LABORATORY NRBC/100 WBC 0.0 0.0 - 10.0 /100 [facility] WBCs [facility] NRBC x10^3 <0.01 10*3/L [facility] LABORATORY GRAN MAT (NEUT) % 70.7 % [facility] LABORATORY IMM GRAN % 0.40 % [facility] LABORATORY LYMPH % 17.2 % [facility] LABORATORY MONO % 10.0 % [facility] LABORATORY EOS % 0.8 % [facility] LABORATORY BASO % 0.9 % [facility] LABORATORY GRAN MAT x10^3(ANC) 6.50 1.99 - 6.95 [facility] 10*3/uL HOSPITAL LAB[facility]ORY IMM GRAN x10^3 0.04 0.00 - 0.06 [facility] 10*3/uL HOSPITAL [facility] LYMPH x10^3 1.58 1.09 - 3.23 [facility] 10*3/uL H[facility]ITAL [facility] MONO x10^3 0.92 0.36 - 1.02 [facility] 10*3/uL HOSPITAL LAB[facility] EOS x10^3 0.07 0.06 - 0.53 [facility] 10*3/uL [facility] BASO x10^3 0.08 0.01 - 0.09 [facility] 10*3/uL [facility] Specimen Blood - ARM, RIGHT Performing Organization Address City/State/Zipcode Phone Number [facility] CLIA: [id number], [address] [place], [place] [address] Basic Metabolic Panel (NA, K, CL, CO2, GLUCOSE, BUN, CREATININE, CA) (12/13/2019 4:24 AM CDT) Pathologist Sig nature NA 132 (L) 135 - 145 [facility] mmol/L [facility] K 3.5 3.5 - 5.0 [facility] mmol/L [facility] CL 96 (L) 98 - 108 mmol/L [facility] LABOR[facility]ORY CO2 TOTAL 29 23 - 31 mmol/L [facility] LABORATORY AGAP 7 2 - 16 [facility] LAB[facility]ORY BUN 14 7 - 23 mg/dL [facility] LAB[facility]ORY GLUCOSE 99 70 - 110 mg/dL [facility] LAB[facility]ORY CREATININE 1.11 0.60 - 1.25 [facility] mg/dL [facility] CALCIUM 8.8 8.6 - 10.6 [facility] mg/dL [facility] eGFR Calculation 68.0 mL/min/1.73m2 [facility] (Non[facility] LABORATORY Russian) eGFR Calculation 82.5 mL/min/1.73m2 [facility] () [facility] Specimen Blood - ARM, RIGHT Narrative Performed At [facility] Glomerular Filtration Rate (GFR) [facility] and Staging of Kidney Disease* + + +- + | GFR (mL/min/1.73 m2) | With Kidney Damage | Without Kidney Damage + + +- + | >90 | Stage one | Normal + + +- + | 60-89 | Stage two | Decreased GFR + + +- + | 30-59 | Stage three | Stage three + + +- + | 15-29 | Stage four | Stage four + + +- + | <15 (or dialysis) | Stage five | Stage five + + +- + *Each stage assumes the associated GFR level has been in effect for at least three months. Stages 1 to 5, with or without kidney disease, indicate chronic kidney disease. Notes: Determination of stages one and two (with eGFR >59mL/min/1.73 m2) requires estimation of kidney damage for at least three months as defined by structural or functional abnormalities of the kidney, manifested by either: Pathological abnormalities or Markers of kidney damage (including abnormalities in the composition of the blood or urine or abnormalities in imaging tests). Performing Organization Address City/State/Zipcode Phone Number [facility] CLIA: [id number], [address] [place], [place] [address] GLYCOSYLATED HEMOGLOBIN (A1C) (12/12/2019 6:44 PM CDT) Pathologist Sig nature HGB A1C 5.1 4.0 - 6.0 % [facility] LABORATORY Specimen Blood - ARM, RIGHT Narrative Performed At %A1C ([facility]) Interpretation (ADA) [facility] [facility] 4.8-5.6 Normal or (Non-Diabetic Ra nge) 5.7-6.4 Increased Risk (Pre-Diabet ic) >6.5 Diabetes Indicated Performing Organization Address City/[facility]/Zipcode Phone Number [facility] CLIA: [id number], [address] [place], [place] [address] XR HEEL 2+ VW LEFT (12/12/2019 3:14 PM CDT) Specimen Impressions Performed At [facility]/[employer] Heel pad ulceration with foreign bodies and no establi shed osteomyelitis. Narrative Performed At EXAM: PACS/VR/DOSE XR HEEL 2+ VW LEFT HISTORY: Evaluate for osteomyelitis COMPARISON: None FINDINGS: Imaging of the calcaneus demonstrates no coalition. A large heel pad ulceration is seen with superimposed radiopaque debris . No aggressive bony destructive change or periosteal reaction is seen. Sof t tissue swelling and osteopenia are present. Diabetic type vascular calcifi cations are present. Procedure Note [facility], Radiant Results Inft User - 2019 3:51 PM CDT EXAM: XR HEEL 2+ VW LEFT HISTORY: Evaluate for osteomyelitis COMPARISON: None FINDINGS: Imaging of the calcaneus demonstrates no coalition. A large heel pad ulceration is seen with superimposed rad iopaque debris. No aggressive bony destructive change or periosteal reactio n is seen. Soft tissue swelling and osteopenia are present. Diabetic type va scular calcifications are present. IMPRESSION Heel pad ulceration with foreign bodies and no established osteomyelitis. Performing Organization Address [facility]/Zipcode Phone Number [facility]/VR/[facility] CORONAVIRUS COVID-19 TESTING (12/12/2019 7:33 AM CDT) SARS-CoV-2 Rapid ID Not Detected Not Detected [facility] Specimen Swab - NASOPHARYNGEAL SWAB Narrative Performed At [facility] COVID-19 Assay is an isothermal nucleic [facility] acid amplification test intended for the qualitative detection of nucleic acid from SARS-CoV-2 viral RNA in nasopharyngeal (GEOTECHNICAL DEPARTMENT MANAGER) specimens. It is used under Emergency Use Authorization (EUA) by FDA. The limit of detection (LOD) of the assay is 125 Genome Equivalents/mL. A positive result is indicative of the presence of SARS-CoV-2 RNA. Clinical correlation with patient history and other diagnostic information is necessary to determine patient infection status. A negative (Not Detected) result does not preclude SARS-CoV-2 infection. In patients with clinical symptoms and other tests that are consistent with SARS-CoV-2 infection, negative results should be treated as presumptive negative and a new specimen should be tested with alternative PCR molecular test. Invalid: Please collect a new specimen for repeat patient testing if clinically indicated. Performing Organization Address City/State/Zipcode Phone Number [facility] CLIA: [id number], [address] Basic Metabolic Panel (NA, K, CL, CO2, GLUCOSE, BUN, CREATININE, CA) (12/12/2019 7:28 AM CDT) Pathologist Sig nature NA 129 (L) 135 - 145 [facility] mmol/L [facility] K 3.6 3.5 - 5.0 [facility] mmol/L [facility] CL 92 (L) 98 - 108 mmol/L [facility] LABORATORY CO2 TOTAL 28 23 - 31 mmol/L [facility] LABOR[facility]ORY AGAP 9 2 - 16 [facility] LAB[facility] BUN 11 7 - 23 mg/dL [facility] LAB[facility]ORY GLUCOSE 118 (H) 70 - 110 mg/dL [facility] LABOR[facility]ORY CREATININE 0.70 0.60 - 1.25 [facility] mg/dL [facility] CALCIUM 9.2 8.6 - 10.6 [facility] mg/dL [facility] eGFR Calculation 115.8 mL/min/1.73m2 [facility] (Non-[facility] LABORATORY Russian) eGFR Calculation 140.4 mL/min/1.73m2 [facility] () [facility] Specimen Blood - ARM, LEFT Narrative Performed At Association of Glomerular Filtration Rate (GFR) [facility] and Staging of Kidney Disease* + + +- + | GFR (mL/min/1.73 m2) | With Kidney Damage | Without Kidney Damage + + +- + | >90 | Stage one | Normal + + +- + | 60-89 | Stage two | Decreased GFR + + +- + | 30-59 | Stage three | Stage three + + +- + | 15-29 | Stage four | Stage four + + +- + | <15 (or dialysis) | Stage five | Stage five + + +- + *Each stage assumes the associated GFR level has been in effect for at least three months. Stages 1 to 5, with or without kidney disease, indicate chronic kidney disease. Notes: Determination of stages one and two (with eGFR >59mL/min/1.73 m2) requires estimation of kidney damage for at least three months as defined by structural or functional abnormalities of the kidney, manifested by either: Pathological abnormalities or Markers of kidney damage (including abnormalities in the composition of the blood or urine or abnormalities in imaging tests). Performing Organization Address City/State/Zipcode Phone Number [facility] CLIA: [id number], [address] [place], [place] [address] CBC WITH DIFFERENTIAL (12/12/2019 7:28 AM CDT) Pathologist Sig nature WBC 10.19 4.20 - 10.70 [facility] 10*3/L [facility] RBC 4.68 4.26 - 5.52 [facility] 10*6/L [facility] HGB 15.3 12.2 - 16.4 [facility] g/dL [facility] HCT 43.1 38.4 - 49.3 % [facility] LABORATORY MCV 92.1 81.7 - 95.6 fL [facility] LABORATORY MCH 32.7 26.1 - 32.7 pg [facility] LABORATORY MCHC 35.5 (H) 31.2 - 35.0 [facility] g/dL [facility] RDW-SD 39.9 38.5 - 51.6 fL [facility] LABORATORY RDW-CV 11.9 (L) 12.1 - 15.4 % [facility] LABORATORY PLT 277 150 - 328 [facility] 10*3/L [facility] MPV 9.2 (L) 9.8 - 13.0 fL [facility] LABORATORY NRBC/100 WBC 0.0 0.0 - 10.0 /100 [facility] WBCs [facility] NRBC x10^3 <0.01 10*3/L [facility] LABORATORY GRAN MAT (NEUT) % 83.9 % [facility] LABORATORY IMM GRAN % 0.60 % [facility] LABORATORY LYMPH % 7.3 % [facility] LABORATORY MONO % 7.8 % [facility] LABORATORY EOS % 0.1 % [facility] LABORATORY BASO % 0.3 % [facility] LABORATORY GRAN MAT x10^3(ANC) 8.56 (H) 1.99 - 6.95 [facility] 10*3/uL [facility] IMM GRAN x10^3 0.06 0.00 - 0.06 [facility] 10*3/uL [facility] LYMPH x10^3 0.74 (L) 1.09 - 3.23 [facility] 10*3/uL [facility] MONO x10^3 0.79 0.36 - 1.02 [facility] 10*3/uL [facility] EOS x10^3 <0.03 (L) 0.06 - 0.53 [facility] 10*3/uL [facility] BASO x10^3 0.03 0.01 - 0.09 [facility] 10*3/uL [facility] Specimen Blood - ARM, LEFT Performing Organization Address City/[facility]/Zipcode Phone Number [facility] CLIA: [id number], [address] [place] [address] Prothrombin Time (PT) / INR (12/12/2019 7:28 AM CDT) PROTIME PATIENT 14.0 12.0 - 14.7 [facility] LABORATORY INR 1.1Comment: Normal [facility] INR <1.1; [facility] Therapeutic range LABORATORY 2.0 to 3.0 or 2.5 to 3.5, depending upon the indications. Specimen Blood - ARM, LEFT Performing Organization Address [facility] Services[facility] Phone Number [facility] CLIA: [id number], [address] [place] [address] aPTT (12/12/2019 7:28 AM CDT) Pathologist Sig nature APTT Patient 26 23 - 38 Seconds [facility] LABORATORY Specimen Blood - ARM, LEFT Narrative Performed At The [facility] patient population mean normal value [facility] LABORATORY for aPTT is 30 seconds. Performing Organization Address [facility] Servicescode Phone Number [facility] CLIA: [id number], [address] [place] [address] Hepatic Function Panel (ALB, T.PRO, BILI T, BU/BC, ALT, AST, ALK PHOS) (12/12/2019 7:28 AM CDT) Pathologist Sig nature TOTAL BILI 0.9 0.1 - 1.1 mg/dL [facility] LABORATORY BILI UNCON 0.8 0.1 - 1.1 mg/dL [facility] LABORATORY BILI CONJ 0.0 0.0 - 0.3 mg/dL [facility] LABORATORY T PROTEIN 7.6 6.3 - 8.2 g/dL [facility] LABORATORY ALBUMIN 4.4 3.5 - 5.0 g/dL [facility] LABORATORY ALK PHOS 117 34 - 122 U/L [facility] LABORATORY ALTv 16 5 - 50 U/L [facility] LABORATORY AST(SGOT) 29 13 - 40 U/L [facility] LABORATORY Specimen Blood - ARM, LEFT Performing Organization Address City/State/Zipcode Phone Number [facility] CLIA: [id number], [address] [place], [place] [address] XR PELVIS <3 VW (12/12/2019 6:53 AM CDT) Specimen Impressions Performed At PACS/VR/DOSE Left femoral neck fracture. Preliminary Report Dictated by Resident: Sandra Lazo I, Lukasz Becerril MD., have reviewed this study and a gree with the above report. Narrative Performed At EXAM: PACS/VR/DOSE XR PELVIS <3 VW, EXAM: XR HIPS 2 VW LEFT HISTORY: fall/pain COMPARISON: Left lower extremity angiogr am 08/01/2019. FINDINGS: Radiographs of the pelvis and left hip d emonstrate cortical irregularity and impaction at the femoral head neck junction superi luis inferiorly. No joint dislocation is identified. Vascular calcificatio ns and surgical clips are seen. Moderate soft tissue swelling surrounds the left hip. Procedure Note [facility], Radiant Results Inft User - 2019 7:38 AM CDT EXAM: XR PELVIS <3 VW, EXAM: XR HIPS 2 VW LEFT HISTORY: fall/pain COMPARISON: Left lower extremity angiogr am 08/01/2019. FINDINGS: Radiographs of the pelvis and left hip d emonstrate cortical irregularity and impaction at the femoral head neck j unction superiorly inferiorly. No joint dislocation is identified. Vascula r calcifications and surgical clips are seen. Moderate soft tissue swelling surrounds the left hip. IMPRESSION Left femoral neck fracture. Preliminary Report Dictated by Resident: Ndy C Lukasz Mantilla MD., have reviewed is study and agree with the above report. Performing Organization Address City/State/Zipcode Phone Number PACS/VR/DOSE XR HIPS 2 VW LEFT (12/12/2019 6:53 AM CDT) Specimen Impressions Performed At PACS/VR/DOSE Left femoral neck fracture. Preliminary Report Dictated by Resident: Lukasz Brandon MD., have reviewed this study and a gree with the above report. Narrative Performed At EXAM: PACS/VR/DOSE XR PELVIS <3 VW, EXAM: XR HIPS 2 VW LEFT HISTORY: fall/pain COMPARISON: Left lower extremity angiogr am 08/01/2019. FINDINGS: Radiographs of the pelvis and left hip d emonstrate cortical irregularity and impaction at the femoral head neck junction superi luis inferiorly. No joint dislocation is identified. Vascular calcificatio ns and surgical clips are seen. Moderate soft tissue swelling surrounds the left hip. Procedure Note [facility], Radiant Results Inft User - 2019 7:38 AM CDT EXAM: XR PELVIS <3 VW, EXAM: XR HIPS 2 VW LEFT HISTORY: fall/pain COMPARISON: Left lower extremity angiogr am 08/01/2019. FINDINGS: Radiographs of the pelvis and left hip d emonstrate cortical irregularity and impaction at the femoral head neck j unction superiorly inferiorly. No joint dislocation is identified. Vascula r calcifications and surgical clips are seen. Moderate soft tissue swelling surrounds the left hip. IMPRESSION Left femoral neck fracture. Preliminary Report Dictated by Resident: Lukasz Brandon MD., have reviewed is study and agree with the above report. Performing Organization Address [facility]/Zipcode Phone Number PACS/VR/DOSE documented in this encounter Visit Diagnoses Diagnosis Closed fracture of left hip, initial enc ounter - Primary Pain of left hip joint Infection of left foot Unspecified local infection of skin and subcutaneous tissue documented in this encounter Administered Medications Medication Order MAR Action Action Date Dose Rate Site acetaminophen (TYLENOL) tablet 650 mg 650 mg, Oral, Q6HPRN, Starting Wed at 0824, Until Discontinued, Routine, Pain (scale 1-3) aspirin chewable tablet 81 mg Given 12/14/2019 8:30 AM CDT 81 mg 81 mg, Oral, DAILY, First dose on Nikia 12/13/19 at 0900, Until Discontinued, Routine Given 12/13/2019 8:33 AM CDT 81 mg D5W 0.9% NaCl (NS) IV infusion New Bag 12/13/2019 11:13 PM CDT 1,000 mL 125 mL/hr 1,000 mL at 125 mL/hr, 1,000 mL, IV Infusion, CONTINUOUS, Starting Tue12/12/19 at 0945, Until Discontinued, Routine New Bag 12/13/2019 4:29 AM CDT 1,000 mL 125 mL/hr New Bag 12/12/2019 7:51 PM CDT 1,000 mL 125 mL/hr gabapentin (NEURONTIN) tablet 600 mg Given 12/14/2019 2:35 PM CDT 600 mg 600 mg, Oral, TID, First dose on Tue12/12/19 at 1400, Until Discontinued, Routine Given 12/14/2019 8:30 AM CDT 600 mg Given 12/13/2019 11:07 PM CDT 600 mg hydroCHLOROthiazide (ESIDRIX) tablet 25 mg Given 12/14/2019 8:30 AM CDT 25 mg 25 mg, Oral, QAM, First dose on Tue12/13/19 at 0900, Until Discontinued, Routine Given 12/13/2019 8:33 AM CDT 25 mg morpHINE injection 4 mg Given 12/14/2019 5:37 AM CDT 4 mg 4 mg, Slow IV Push, Q4HPRN, Starting Tue12/13/19 at 1743, Until Tue12/14/19 at 1742, Routine, Pain (scale 7-10) Given 12/13/2019 11:07 PM CDT 4 mg piperacillin-tazobactam (ZOSYN) 3.375 Given 12/14/2019 8:30 AM CDT 3.375 g gram/50 mL Piggyback RTU 3.375 g 3.375 g, IV Piggyback, Q8H ABX, First dose on Tue12/12/19 at 1415, Until Discontinued, 50 mL, Reason for Anti-Infective: Documented Infection, Documented Infection Site: Skin / Soft Tissue, Duration of Therapy: 14 days Given 12/14/2019 12:59 AM CDT 3.375 g Given 12/13/2019 2:54 PM CDT 3.375 g simvastatin (ZOCOR) tablet 20 mg Given 12/13/2019 11:07 PM CDT 20 mg 20 mg, Oral, QHS, First dose on Tue12/12/19 at 2100, Until Discontinued, Routine Given 12/12/2019 9:02 PM CDT 20 mg sodium chloride 0.9 % irrigation Given 12/13/2019 1:20 PM CDT 1 ,000 mL Left Hip solution PRN, Starting Tue12/13/19 at 1320, Until Discontinued, Intra-op vancomycin 1000 mg in NS 200 mL RTU IV P iggyback 1,000 mg 1,000 mg, IV Piggyback, Q12H ABX, First dose on 06/22 at 1000, Until Discontinued, Reason for Anti-Infective: Documented Infection, Documented Infection Site: Skin / Soft Tissue, Duration of Therapy: 14 days Medication Order MAR Action Action Date Dose Rate Site enoxaparin (LOVENOX) Given 12/14/2019 4:26 PM CDT 40 mg Abdomen-SC injection 40 mg 40 mg, Subcutaneous, ONCE, 1 dose, Tue12/14/19 at 1630, Routine HYDROcodone-acetaminophen (NORCO 5) 5-325 Given 2019 6:58 AM CDT 1 tablet mg tablet 1 tablet 1 tablet, Oral, ONCE, 1 dose, Tue12/12/19 at 0700, YAMILEX morpHINE injection 4 mg Given 12/12/2019 11:58 AM CDT 4 mg 4 mg, Slow IV Push, Q4HPRN, Starting Tue12/12/19 at 0824, Until Tue12/13/19 at 0823, Routine, Pain (scale 7-10) vancomycin 1000 mg in NS 200 mL RTU IV Given 12/14/2019 10:03 AM CDT 1,000 mg Piggyback 1,000 mg 1,000 mg, IV Piggyback, Q12H ABX, First dose on Tue12/12/19 at 2000, Until Discontinued, Reason for Anti-Infective: Documented Infection, Documented Infection Site: Skin / Soft Tissue, Duration of Therapy: 14 days Given 12/13/2019 11:07 PM CDT 1,000 mg Given 12/13/2019 8:33 AM CDT 1,000 mg documented in this encounter
--- OUTSIDE RECORDS SUMMARY | 2019-12-27 11:18 | XMS REPORT | Summary of Care ---
:1960 Author Organization [facility] Address [address] [place] [address] Care Team Providers Name Role Phone To Svetlana Primary Care Provider Reason for Referral (Routine) Status Reason Specialty Diagnoses / Referred By Referred To Procedures Contact Contact New Request URO-UROLOGY Diagnoses Hematuria, gross Ibikunle, Folusho Procedures Discharge Follow-Up: Specialty Service URO-UROLOGY; 2 Days F, [employer]S SALES ADVISOR [address] [facility] [address] [place] [id number] Reason for Visit Reason Comments Hematuria Auth/Cert Status Reason Specialty Diagnoses / Referred By Referred To Procedures Contact Contact Emergency Medicine [facility] Dept [address] [place] [address] Fax: Encounter Details Date Type Department Care Team Description 12/18/2019 Emergency ADC-Emergency Ibikunle, Folusho Hematuria , gross Department F, PARTS SALES ADVISOR (Primary Dx) [address] [place] [address] [place] [address] [phone] Allergies No Known Allergiesdocumented as of this encounter (statuses as of 12/18/2019) Medications Medication Sig Dispensed Refills Start Date End Date Status hydroCHLOROthiazide 25 mg Take 1 tablet 30 tablet 2 08/25/2019 Active tabletIndications: by mouth every Peripheral arterial morning. disease aspirin 81 mg chewable Take 1 tablet 30 tablet 2 08/25/2019 Active tabletIndications: by mouth daily. Peripheral arterial disease HYDROcodone-acetaminophen Take 1 tablet 28 tablet 0 08/25/2019 Active (NORCO) 10-325 mg by mouth every tabletIndications: 6 (six) hours Peripheral vascular as needed for disease, unspecified Pain (scale 7-10). simvastatin 20 mg Take 1 tablet 30 tablet 2 08/25/2019 Active tabletIndications: by mouth at Peripheral arterial bedtime. disease traMADol 50 mg Take 1 tablet 20 tablet 0 08/29/2019 Active tabletIndications: by mouth every Peripheral vascular 8 (eight) hours disease, unspecified as needed for Pain (scale 4-6) or Pain (scale 7-10). FUROSEMIDE, BULK, MISC 0 Active gabapentin 600 mg Take 1 tablet 90 tablet 1 12/03/2019 Active tabletIndications: by mouth 3 0 Peripheral vascular (three) times disease, unspecified daily for 60 days. buPROPion 200 mg 12 hr Take 1 tablet 60 tablet 0 12/03/2019 Active tabletIndications: by mouth 2 0 Peripheral vascular (two) times disease, unspecified daily for 30 days. clindamycin 300 mg Take 1 capsule 90 capsule 0 12/14/201901/01 Active capsuleIndications: by mouth 3 0 Closed fracture of left (three) times hip, initial encounter daily for 30 days. apixaban 2.5 mg Take 1 tablet 60 tablet 0 12/14/2019 Active tabletIndications: hip by mouth 2 0 surgery deep vein (two) times thrombosis prevention daily for 30 days. Indications: deep vein thrombosis prevention in hip surgery levoFLOXacin 500 mg Take 1 tablet 30 tablet 0 12/14/2019 Active tabletIndications: Closed by mouth every fracture of left hip, 24 initial encounter (twenty-four) hours. acidophilus 100 million Take 1 tablet 180 tablet 0 12/14/2019 Active cell tabletIndications: by mouth 2 Closed fracture of left (two) times hip, initial encounter daily. documented as of this encounter (statuses as of 12/18/2019) Active Problems Problem Noted Date Closed left hip fracture 12/12/2019 Infection of left foot 09/07/2019 Critical lower limb ischemia 08/23/2019 Peripheral vascular disease, unspecified 07/31/2019 Overview: Added automatically from request for tono boykiny [id number] documented as of this encounter (statuses as of 12/18/2019) Immunizations Name Administration Dates Next Due Pneumococcal [...] been in contact with No / Unsure 12/18/2019 3:39 PM CDT someone who was confirmed or suspected to have Coronavirus / COVID-19? documented as of this encounter Last Filed Vital Signs Vital Sign Reading Time Taken Comments Blood Pressure 178/91 12/18/2019 6:44 PM CDT Pulse 70 12/18/2019 6:44 PM CDT Temperature 36.4 C (97.6 F) 12/18/2019 6:05 PM CDT Respiratory Rate 16 12/18/2019 6:44 PM CDT Oxygen Saturation 99% 12/18/2019 6:44 PM CDT Inhaled Oxygen Concentration - - Weight 61.2 kg (135 lb) 12/18/2019 3:41 PM CDT Height 177.8 cm (5' 10") 12/18/2019 3:41 PM CDT Body Mass Index 19.37 12/18/2019 3:41 PM CDT documented in this encounter Discharge Instructions Roddy Rothman FNP - 12/18/2019 You were seen today for Chief Complaint Patient presents with Hematuria Your ER diagnosis was ICD-10-CM ICD-9-CM 1. Hematuria, gross R31.0 599.71 NO LIFE-THREATENING FINDINGS ON TODAY'S EXAM. YOUR PRESCRIPTIONS : Medication List ASK your doctor about these medications acidophilus 100 million cell tablet Commonly known as: LACTINEX Take 1 tablet by mouth 2 (two) times daily. apixaban 2.5 mg tablet Commonly known as: ELIQUIS Take 1 tablet by mouth 2 (two) times daily for 30 days. Indications: deep vein thrombosis preventionin hip surgery aspirin 81 mg chewable tablet Take 1 tablet by mouth daily. buPROPion 200 mg 12 hr tablet Commonly known as: WELLBUTRIN SR Take 1 tablet by mouth 2 (two) times daily for 30 days. clindamycin 300 mg capsule Commonly known as: CLEOCIN HCL Take 1 capsule by mouth 3 (three) times daily for 30 days. FUROSEMIDE (BULK) MISC gabapentin 600 mg tablet Commonly known as: NEURONTIN Take 1 tablet by mouth 3 (three) times daily for 60 days. hydroCHLOROthiazide 25 mg tablet Commonly known as: ESIDRIX Take 1 tablet by mouth every morning. HYDROcodone-acetaminophen 10-325 mg tablet Commonly known as: NORCO Take 1 tablet by mouth every 6 (six) hours as needed for Pain (scale 7-10). levoFLOXacin 500 mg tablet Commonly known as: LEVAQUIN Take 1 tablet by mouth every 24 (twenty-four) hours. simvastatin 20 mg tablet Commonly known as: ZOCOR Take 1 tablet by mouth at bedtime. traMADol 50 mg tablet Commonly known as: ULTRAM Take 1 tablet by mouth every 8 (eight) hours as needed for Pain (scale 4-6) or Pain (scale 7-10). ER precautions and follow up : 1. Return to ER if your symptoms should worsen or fail to improve within 72 hours. 2. The care provided in the emergency room was for acute problems only. 3. You should follow up with Urologist provider within 72 hours. 4. Fill and take all your medications as prescribed. 5. Make sure you are staying adequately hydrated. Busque attencion immediatamente si usted tiene los sitomas sigue, vuelve peor o si hay sitomas nuevas o para cualquiera preoccupacion incluyendo dolor del [facility] health[facility], falta aire, se siente debile, mas fievre, mas dolor, nausea, vomitando, sangrando que no es normal, confusion, baja or pierdas conciencia. FOLLOW-UP RECOMMENDATIONS: RECOMMEND FOLLOW-UP WITH A PRIMARY CARE PROVIDER OR SPECIALIST IN 2-5 DAYS, ESPECIALLY IF NO IMPROVEMENT IN SYMPTOMS. MAY FOLLOW-UP WITH A PROVIDER OF YOUR CHOICE, SUCH : 1. A PHYSICIAN OF YOUR CHOICE 2. [facility], . LOCATIONS IN [facility] 3. [facility], [address], [place]; [phone] OR, IF YOU WISH TO FOLLOW-UP WITHIN THE [facility], MAY TRY THESE OPTIONS (CLINIC APPOINTMENTS AVAILABLE ON [id number] BASIS): 1. SCHEDULE AN APPOINTMENT ONLINE AT [facility] 2. OR CALL THE [facility] AT OR 3. OR CALL YOUR [facility] PHYSICIAN'S OFFICE DIRECTLY IF YOU ARE ALREADY AN ESTABLISHED [facility] PATIENT. documented in this encounter Plan of Treatment Date Type Specialty Care Team Description 01/07/2020 Office Visit Vascular Surgery Faculty, Vascular Surg Name Type Priority Associated Diagnoses Date/Ti me URINE CULTURE LAB STAT Hematuria, gross 12/18/2019 4:43 PM CDT Name Type Priority Associated Diagnoses Order S chedule URINE CULTURE LAB Routine Hematuria, gross ONCE for 1 Occurrences starting 12/18/2019 unti l 12/18/2019 Health Maintenance Due Date Last Done Comments [...] of this encounter Implants Implanted Type Area Capacitor Tester Device Shelf Model / Identifier Expiration Date Ser ial / Lot Screw, Synthes 7.3mm Jennifer 32mm Thrd/100mm #209.900 - Sn/A SCREW Left: Hip Synthes 209.900 / Implanted: Qty: 2 on 12/13/2019 by Gagandeep Crane MD at [facility] N /A / N/A Screw, Synthes 7.3mm Jennifer 32mm Thrd/95mm #209.895 - Sn/A SCREW Left: Hip Synthes 209.895 / Implanted: Qty: 1 on 12/13/2019 by Gagandeep Crane MD at [facility] N /A / N/A Angio-Seal Evolution Vascular Closure Device [employer] #[id number] - Sna Right: Terumo 02/01/2020 [id number] / Implanted: Qty: 1 on 08/10/2019 by Mckay Bonilla Jr., MD at [facility] Stacie NA / [id number] documented as of this encounter Procedures Procedure Name Priority Date/Time Associated Comments Diagnosis URINALYSIS STAT 12/18/2019 4:43 PM Hematuria, gross Resu lts for this CDT procedure are i n the results section. NOTICE OF PRIVACY Routine 12/18/2019 3:30 PM PRACTICES CDT CONSENT/REFUSAL FOR Routine 12/18/2019 3:29 PM DIAGNOSIS AND CDT TREATMENT documented in this encounter Results URINALYSIS (12/18/2019 4:43 PM CDT) Pathologist Sig nature APPEARANCE Clear Clear [facility] COLOR Red (A) Yellow [facility] PH 6.0 4.8 - 8.0 [facility] SP GRAVITY 1.006 1.003 - 1.030 [facility] GLU U QUAL Normal Normal [facility] BLOOD 3+ (A) Negative [facility] KETONES Negative Negative [facility] PROTEIN Negative Negative [facility] UROBILIN Normal Normal [facility] BILIRUBIN Negative Negative [facility] NITRITE Negative Negative [facility] LEUK TRACY Negative Negative [facility] RBC/HPF >182 (H) 0 - 3 HPF [facility] WBC/HPF 22 (H) 0 - 5 HPF [facility] BACTERIA Negative Negative [facility] Specimen Urine - URINE, CLEAN CATCH Performing Organization Address City/State/Zipcode Phone Number [facility] CLIA: [id number], [address] [place], [place] [address] documented in this encounter Visit Diagnoses Diagnosis Hematuria, gross - Primary Gross hematuria documented in this encounter
--- OUTSIDE RECORDS SUMMARY | 2019-12-27 11:18 | XMS REPORT | Continuity of Care Document ---
:1960 Author Organization [facility] t Address [address] [place] [address] Care Team Providers Name Role Phone Beau Macdonald Attending Clinician Portia EARLY, M Attending Clinician Zeinab SZYMANSKI C Attending Clinician Saroj SZYMANSKI Attending Clinician Rito SZYMANSKI Attending Clinician Faculty, Surg Attending Clinician Unavailable Saroj SZYMANSKI Admitting Clinician Problems This patient has no known problems. Allergies, Adverse Reactions, Alerts This patient has no known allergies or adverse reactions. Medications This patient has no known medications. Procedures This patient has no known procedures. Encounters Start End Encounter Admission Attending Care Care Encounter Source Date/Time Date/Time Type Type Clinicians Facility Department ID 2019-12-18 2019-12-18 Emergency PEEWEE Paredes [id number] 15:43:42 19:02:00 Roddy Beau Godoy [id number] [place] [id number] [place] [id number] 2019-12-17 2019-12-17 Transition Donny Pearce [id number] 00:00:00 00:00:00 of Care Alma Lopes [id number] [place] [id number] [id number] 2019-12-12 2019-12-14 Hospital Neftali Arriola [facility] [id number] 06:21:02 17:06:00 Encounter Allan Kyle [id number] [place] [id number] [place] [id number] 2019-12-13 2019-12-13 [facility] [id number] 12:47:00 14:13:00 Romero Godoy [id number] [place] [id number] Surgical [id number] [place] 020 2019-11-05 2019-11-05 Office Faculty, [facility] [id number] 09:33:57 10:41:36 Visit Vascular Y [facility] [id number] Surg CLINICS [id number] [id number] Results This patient has no known results.
--- OUTSIDE RECORDS SUMMARY | 2019-12-27 11:18 | XMS REPORT | Summary of Care ---
:1960 Author Organization [facility] Address [address] [place] [address] Care Team Providers Name Role Phone Svetlana Ariza Primary Care Provider Reason for Visit Reason Comments Transition Of Care Encounter Details Date Type Department Care Team Description 12/17/2019 Transition of Care [facility] Alma Pearce Tr [facility]- RN [address] [address] Allergies No Known Allergiesdocumented as of this encounter (statuses as of 12/17/2019) Medications Medication Sig Dispensed Refills Start Date [...] mg Take 1 tablet 90 tablet 1 12/03/201901/31/ 02 Active tabletIndications: by mouth 3 0 Peripheral [...] as of this encounter (statuses as of 12/17/2019) Active Problems Problem Noted Date Closed left hip fracture 12/12/2019 Infection of left foot 09/07/2019 Critical lower limb ischemia 08/23/2019 Peripheral vascular disease, unspecified 07/31/2019 Overview: Added automatically from request for tono juarez [id number] documented as of this encounter (statuses as of 12/17/2019) Immunizations Name Administration Dates Next Due Pneumococcal [...] of this encounter Last Filed Vital Signs Not on filedocumented in this encounter Plan of Treatment Date [...] of this encounter Implants Implanted Type Area Airborne Operations Superintendent Device Shelf Model / Identifier Expiration Date Ser ial / Lot Screw, Synthes 7.3mm Jennifer 32mm Thrd/100mm #209.900 - Sn/A SCREW Left: Hip Synthes 209.900 / Implanted: Qty: 2 on 12/13/2019 by Gagandeep Crane MD at [facility] N /A / N/A Screw, Synthes 7.3mm Jennifer 32mm Thrd/95mm #209.895 - Sn/A SCREW Left: Hip Synthes 209.895 / Implanted: Qty: 1 on 12/13/2019 by Gagandeep Crane MD at [facility] N /A / N/A Angio-Seal Evolution Vascular Closure Device [employer] #[id number] - Sna Right: Terumo 02/01/2020 [id number] / Implanted: Qty: 1 on 08/10/2019 by Mckay Bonilla Jr., MD at [facility] / [id number] documented as of this encounter Results Not on filedocumented in this encounter Insurance Payer Benefit Plan / Subscriber ID Effective Dates Phone Addre ss Type Group [employer] [id number] 2019- 301 [employer] [facility] [address] [facility] [place] [address] documented as of this encounter
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
[2019-12-27] MEDS ORDERED: LORazepam 2 MG/ML VIAL ONE (11:58)
[2019-12-27 12:07] LABS: Barbiturates NEGATIVE (NEGATIVE); Benzodiazepines NEGATIVE (NEGATIVE); Cocaine NEGATIVE (NEGATIVE); METHAMPHETAM NEGATIVE (NEGATIVE); Methadone NEGATIVE (NEGATIVE); Opiates POSITIVE (NEGATIVE); Phencyclidine NEGATIVE (NEGATIVE); THC Cannibis POSITIVE (NEGATIVE)
[2019-12-27 12:20] LABS: Urine Blood TRACE (NEG); Urine Glucose NEGATIVE (NEG); Urine Protein NEGATIVE (NEG)
[2019-12-27] MEDS ORDERED: NA CHLORIDE 0.9% 100 ML IV ONE (12:21)
[2019-12-27] MEDS ORDERED: LEVETIRACETAM 500 MG/5 ML VIAL IV ONE (12:21)
--- NOTE | 2019-12-27 12:29 | RAD REPORT ---
EXAM DESCRIPTION: CT - Head Brain Wo Cont - 12/27/2019 12:21 pm CLINICAL HISTORY: SEIZURE Headache, drowsiness COMPARISON: No comparisons TECHNIQUE: All CT scans are performed using dose optimization technique as appropriate and may inclu de automated exposure control or mA/KV adjustment according to patient size. FINDINGS: No intracranial hemorrhage, hydrocephalus or extra-axial fluid collection.Mild periventric ular and deep white matter chronic microvascular ischemic changes.No areas of brain edema or evidence of midline shift. 19 mm area of diminished density is seen in the left posterior frontal subcortical white matter. The paranasal sinuses and mastoids are clear. The calvarium is intact. IMPRESSION: No acute intracranial abnormality. 19 mm area of diminished density left posterior frontal subcortical white matter is probably chronic however MRI brain followup would be helpful.
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
--- NOTE | 2019-12-27 15:29 | RAD REPORT ---
EXAM DESCRIPTION: MRI - Brain Wo Cont - 12/27/2019 2:59 pm CLINICAL HISTORY: abnormal CT;Seizure COMPARISON: Head Brain Wo Cont dated 12/27/2019 TECHNIQUE: Sagittal T1-weighted images were obtained along with axial PD, heavily T2-weighted and T2 -FLAIR images. Axial DWI and ADC mapping sequences were also obtained along with coronal heavily T2-w eighted images. FINDINGS: No intracranial hemorrhage, mass or acute infarction. There is no edema or shift of midlin e structures. No extra-axial fluid collections. Persaud-matter/white matter junction is preserved. Signa l voids are seen as a normal finding in the major intracranial vessels. No medial temporal lobe asym metry or focal signal abnormality. Patient does appear to have some mild volume loss. Ventricles are in proportion. There is extensive w danielle matter signal abnormality throughout both cerebral hemispheres as well as the brainstem. This in cludes the area of signal abnormality detailed on the CT study. This is a pattern typical for chronic ischemic change. White matter disease is not classic for demyelinization. Vasculitis or migraine hea dache etiologies are on likely but can be correlated with clinical history. Mastoid air cells are clear. Right maxillary sinus mucosal thickening present. IMPRESSION: No hemorrhage or acute intracranial finding identifiable. Patient has advanced cerebral white matter signal abnormality and brainstem signal abnormality most l ikely chronic ischemic change. This includes the area of attenuation abnormality detailed on the rece nt CT study.
[2019-12-27 17:58] VITALS: BMI 19.3
[2019-12-27] MEDS ORDERED: CODEINE 30MG/APAP 300MG TAB PO PRN (18:14)
[2019-12-27] MEDS: SODIUM CHLORIDE 1 GM TAB PO SCH (18:26)
[2019-12-27] MEDS: GABAPENTIN 300 MG CAP PO SCH (21:05)
[2019-12-28] MEDS: SODIUM CHLORIDE 1 GM TAB PO SCH (09:23)
[2019-12-28] MEDS: GABAPENTIN 300 MG CAP PO SCH ×2 (09:23→14:19)
[2019-12-28 10:53] VITALS: O2SAT 98
[2019-12-28 12:44] LABS: Potassium 3.9 mmol/L (3.5-5.1)
[2019-12-28] MEDS ORDERED: HOME MED 1 EA UNK (Gabapentin [Gabapentin] 600 MG) PO SCH (14:00)
--- NOTE | 2019-12-28 15:20 | P.DS ---
Admission Date: 12/28/19 Discharge Date: 12/28/19 Disposition: ROUTINE DISCHARGE Discharge Condition: GOOD Reason for Admission: AMS - Problems (1) Acute encephalopathy Current Visit: Yes Status: Acute (2) Seizure Current Visit: Yes Status: Acute (3) Peripheral vascular disease of lower extremity with ulceration Current Visit: Yes Status: Acute (4) Chronic back pain greater than 3 months duration Current Visit: Yes Status: Acute Brief History of Present Illness: Patient is a 59 year old male with a PMH of chronic back pain (on opi ods), PVD s/p LLE revascularization with bypass procedure 3 months ago and a more recent left hip fracture s/p repair. He was on his way to an outpatient appointment for staple removal when he was noted to be swirving on the road. Police was on site and EMS was called. Patient's mental status returned to baseline after he arrived to the ER. He was in the process of being discharged when he acutely became convulsive. A CT Head was unremarkable. During our encounter, patient was without signs of injuries, urinary/bladder incontinence or post-ictal state. He has no known hx of epilepsy. His urine toxicology was positive for opiods and cannabis. Hospital Course: Patient is a 59 year old male with a PMH of chronic back pain, PVD s/p revascularization and currenlty on systemic anticoagulation. He was admitted after for evaluation seizure. CT head was without acute intracranial abdnormaliteis. Brain MRI showed advanced cerebral white matter signal abnormality and brain stem matter signal abnormality concerning for chronic ischemic change. Medication evaluation revealed that he was also on buproprion but patient denied taking it. His hospital stay has been unremarkable. He will be discharged to follow up with Neurology. Of note, patient has a foul-smelling, dry gangrene on his left heel. Wound care evaluated the patient. Patient is f dominik at the [facility] wound care center and has an appointment on January 07, 2020. Vital Signs/Physical Exam: Temp Pulse Resp BP Pulse Ox 98.9 F 72 18 135/72 99 12/28/19 11:49 12/28/19 11:49 12/28/19 11:49 12/28/19 11:49 12/28/19 11:49 General: Alert, In no apparent distress, Cooperative, Cachectic HEENT: Atraumatic, Normocephalic, EOMI Neck: Supple Respiratory: Clear to auscultation bilaterally, Normal air movement Cardiovascular: No edema, Normal pulses, Regular rate/rhythm, Normal S1 S2, No murmurs, Other (2-inch round dry gangrene - left heel) Gastrointestinal: Normal bowel sounds, Soft and benign, Non-distended Integumentary: No rashes, No breakdown, No significant lesion, No tenderness/swelling, No erythema, No warmth, No cyanosis Neurological: Normal speech, Sensation intact, Normal affect Laboratory Data at Discharge: WBC 3.9 K/uL (4.3-10.9) L 12/27/19 10:00 Hgb 13.8 g/dL (13.6-17.9) 12/27/19 10:00 Hct 39.8 % (39.6-49.0) 12/27/19 10:00 Plt Count 396 K/uL (152-406) 12/27/19 10:00 PT 13.3 SECONDS (9.5-12.5) H 12/27/19 10:00 INR 1.13 12/27/19 10:00 Sodium 132 mmol/L (136-145) L 12/28/19 12:19 Potassium 3.9 mmol/L (3.5-5.1) 12/28/19 12:19 BUN 10 mg/dL (7-18) 12/28/19 12:19 Creatinine 0.97 mg/dL (0.55-1.3) 12/28/19 12:19 Glucose 134 mg/dL (74-106) H 12/28/19 12:19 Magnesium 2.2 mg/dL (1.8-2.4) 12/27/19 10:00 Total Bilirubin 0.6 mg/dL (0.2-1.0) 12/27/19 10:00 AST 37 U/L (15-37) 12/27/19 10:00 ALT 33 U/L (12-78) 12/27/19 10:00 Alkaline Phosphatase 167 U/L (45-117) H 12/27/19 10:00 Home Medications: Apixaban [Eliquis] 2.5 mg PO BID 12/27/19 Gabapentin 600 mg PO TID 12/27/19 Diet: AHA
[2019-12-28 16:10] VITALS: BP 113/66; TEMP 99.2
--- NOTE | 2019-12-28 18:16 | EKG ---
Test Date: 2019-12-27 Test Time: 11:54:01 Fagot Maker: RAJANI MEASUREMENT RESULTS: Intervals: Rate: 88 UT: 222 QRSD: 156 QT: 430 QTc: 520 [place]: P: 78 UT: 222 QRS: 94 T: 65 INTERPRETIVE STATEMENTS: Sinus rhythm with 1st degree AV block Possible Left atrial enlargement Right bundle branch block Abnormal ECG Compared to ECG 12/27/2019 10:07:54 First degree AV block now present Electronically Signed On 12-28-19 18:12:58 CDT by Alexandre Mcwilliams
--- NOTE | 2019-12-28 18:16 | EKG ---
Test Date: 2019-12-27 Test Time: 10:07:54 Tin Worker: NAS MEASUREMENT RESULTS: Intervals: Rate: 71 [place]: 176 QRSD: 140 QT: 426 QTc: 462 [place]: P: 76 [place]: 176 QRS: 83 T: 68 INTERPRETIVE STATEMENTS: Normal sinus rhythm Right bundle branch block Abnormal ECG No previous ECG available for comparison Electronically Signed On 12-28-19 18:13:01 CDT by Alexandre Mcwilliams
[2019-12-28] MEDS ORDERED: BUPROPION HCL 200 MG PO SCH (21:00)
[2019-12-28] MEDS ORDERED: JUVEN PACKET PO SCH (21:00)
[2019-12-28] MEDS ORDERED: APIXABAN 2.5 MG TABLET PO SCH (21:00)
== END 2019-12-28 16:48 | disposition home or self-care (01) | DRG 101 ==
LOC: ER 09:34 → ERHOLD 13:00 → 2ND 17:02 → OBSVTOIN 12-28 08:49
PROVIDERS: ADMIT Internal Medicine; ATTEND Internal Medicine
DX: R56.9 Unspecified convulsions (principal); G93.40 Encephalopathy, unspecified; R64 Cachexia; Z68.1 Body mass index [BMI] 19.9 or less, adult; I77.2 Rupture of artery; I96 Gangrene, not elsewhere classified; L97.429 Non-pressure chronic ulcer of left heel and midfoot with unspecified severity; M54.9 Dorsalgia, unspecified; G89.29 Other chronic pain; F17.210 Nicotine dependence, cigarettes, uncomplicated
CPT/HCPCS: 36415; 70450; 70551; 71045; 80048; 80076; 80307; 81003; 83735; 83880; 85025; 85610; 93005; 96365; 96366; 97112; 97116; 97161; 99285; G0378; J0360; J1953; J7030